=== PATIENT | female | born 1960 | race Caucasian/White ===

== ENCOUNTER 2019-11-04 18:10 | Emergency (ER) | payer OTHER ==
[2019-11-04 18:14] LABS: Glucose,Whole Blood 106 mg/dL (75-99)
[2019-11-04] MEDS ORDERED: SODIUM CHLORIDE 0.9% 500 ML 500 ML IV STA (18:15)
[2019-11-04 18:27] VITALS: TEMP 98.2
--- NOTE | 2019-11-04 18:33 | ED ---
General Adult HPI - General Stated complaint: AMS Time Seen by Provider: 11/04/19 18:10 Source: patient, EMS, RN notes reviewed, old records reviewed - History of Present Illness Initial comments: this is a 58-year-old female who was brought in for strokelike symptoms. According to EMS the patient was last seen normal about 25 minutes prior to their arrival. states when he found her she was altered had slurred speech and right-sided facial droop. When EMS arrived she was unable to answer most questions initially but slowly came around to the point where she was answering all questions by the time she arrived. EMS stated that her facial droop slowly resolved by the time they got here the facial droop it completely resolved. Patient currently states she's feeling better she just members feeling lightheaded at home and then doesn't remember much else. Patient states she has had a stroke in the past. Patient denies any drug or alcohol use. Patient denies any chest pain difficulty breathing shortness of breath. Patient denies any fever chills or cough per patient denies any headache patient denies any numbness weakness currently. Patient denies any abdominal pain patient denies any nausea vomiting. Patient denies any recent injury or trauma. - Related Data Allergies Allergy/AdvReac Type Severity Reaction Status Date / Time codeine Allergy Swelling Verified 11/04/19 18:28 Review of Systems ROS Statement: Those systems with pertinent positive or pertinent negative responses have been documented in the HPI. ROS Other: All systems not noted in ROS Statement are negative. General Exam - General Exam Comments Initial Comments: GENERAL: Patient is well-developed and well-nourished. Patient is nontoxic and well- hydrated and is in mild distress. ENT: Neck is soft and supple. No significant lymphadenopathy is noted. Oropharynx is clear. Moist mucous membranes. Neck has full range of motion without elici ting any pain. EYES: The sclera were anicteric and conjunctiva were pink and moist. Extraocular m ovements were intact and pupils were equal round and reactive to light. Eyelids were unremarkable. PULMONARY: Unlabored respirations. Good breath sounds bilaterally. No audible rales rhonchi or wheezing was noted. CARDIOVASCULAR: There is a regular rate and rhythm without any murmurs gallops or rubs. ABDOMEN: Soft and nontender with normal bowel sounds. SKIN: Skin is clear with no lesions or rashes and otherwise unremarkable. NEUROLOGIC: Patient is alert and oriented x3. Cranial nerves II through XII are grossly intact. Motor and sensory are also intact. Normal speech, volume and content. Symmetrical smile. NIH at this point is 0 MUSCULOSKELETAL: Patient is a gross deformity over the midclavicular region of the left clavicle area is extremely tender. LYMPHATICS: No significant lymphadenopathy is noted PSYCHIATRIC: Normal psychiatric evaluation. Course Vital Signs 11/04/19 11/04/19 11/04/19 18:20 19:53 20:00 Temperature 98.2 F Pulse Rate 70 70 65 Respiratory 18 18 20 Rate Blood Pressure 145/85 136/72 160/79 O2 Sat by Pulse 99 100 97 Oximetry Medical Decision Making - Medical Decision Making EKG shows normal sinus rhythm at 60 bpm ND interval is on a 26 QRS is 94 Q-T intervals 432 QTC is 459. Patient's EKG shows no ST segment elevation or depression. CT of the brain shows no acute abnormality. Chest x-ray shows a displaced midclavicular fracture on the left I told the patient she had a TIA and needed to stay in the hospital she actually refused and signed out AMA understanding the consequences or potential consequences. I spoke with Dr. Bob about the clavicle fracture and the patient will need [facility] - Lab Data Result diagrams: 11/04/19 18:13 11/04/19 18:13 Lab Results 11/04/19 11/04/19 11/04/19 Range/Units 18:13 18:13 18:13 WBC 5.4 (3.8-10.6) k/uL RBC 3.98 (3.80-5.40) m/uL Hgb 13.2 (11.4-16.0) gm/dL Hct 39.2 (34.0-46.0) % MCV 98.4 (80.0-100.0) fL MCH 33.2 (25.0-35.0) pg MCHC 33.7 (31.0-37.0) g/dL RDW 12.6 (11.5-15.5) % Plt Count 242 (150-450) k/uL Neutrophils % 55 % Lymphocytes % 26 % Monocytes % 6 % Eosinophils % 8 % Basophils % 2 % Neutrophils # 2.9 (1.3-7.7) k/uL Lymphocytes # 1.4 (1.0-4.8) k/uL Monocytes # 0.3 (0-1.0) k/uL Eosinophils # 0.4 (0-0.7) k/uL Basophils # 0.1 (0-0.2) k/uL PT 9.7 (9.0-12.0) sec INR 0.9 (<1.2) APTT 22.3 (22.0-30.0) sec Sodium (137-145) mmol/L Potassium (3.5-5.1) mmol/L Chloride (98-107) mmol/L Carbon Dioxide (22-30) mmol/L Anion Gap mmol/L BUN (7-17) mg/dL Creatinine (0.52-1.04) mg/dL Est GFR (CKD-EPI)AfAm (>60 ml/min/1.73 sqM) Est GFR (CKD-EPI)NonAf (>60 ml/min/1.73 sqM) Glucose (74-99) mg/dL POC Glucose (mg/dL) 106 H (75-99) mg/dL POC Glu Dispatcher Motor Vehicle ID Michelle Tierney Calcium (8.4-10.2) mg/dL Total Bilirubin (0.2-1.3) mg/dL AST (14-36) U/L ALT (4-34) U/L Alkaline Phosphatase (38-126) U/L Troponin I (0.000-0.034) ng/mL Total Protein (6.3-8.2) g/dL Albumin (3.5-5.0) g/dL Urine Color Urine Appearance (Clear) Urine pH (5.0-8.0) Ur Specific Kiester (1.001-1.035) Urine Protein (Negative) Urine Glucose (UA) (Negative) Urine Ketones (Negative) Urine Blood (Negative) Urine Nitrite (Negative) Urine Bilirubin (Negative) Urine Urobilinogen (<2.0) mg/dL Ur Leukocyte Esterase (Negative) Urine Opiates Screen (NotDetected) Ur Oxycodone Screen (NotDetected) Urine Methadone Screen (NotDetected) Ur Propoxyphene Screen (NotDetected) Ur Barbiturates Screen (NotDetected) U Tricyclic Antidepress (NotDetected) Ur Phencyclidine Scrn (NotDetected) Ur Amphetamines Screen (NotDetected) U Methamphetamines Scrn (NotDetected) U Benzodiazepines Scrn (NotDetected) Urine Cocaine Screen (NotDetected) U Marijuana (THC) Screen (NotDetected) 11/04/19 11/04/19 11/04/19 Range/Units 18:13 18:13 20:40 WBC (3.8-10.6) k/uL RBC (3.80-5.40) m/uL Hgb (11.4-16.0) gm/dL Hct (34.0-46.0) % MCV (80.0-100.0) fL MCH (25.0-35.0) pg MCHC (31.0-37.0) g/dL RDW (11.5-15.5) % Plt Count (150-450) k/uL Neutrophils % % Lymphocytes % % Monocytes % % Eosinophils % % Basophils % % Neutrophils # (1.3-7.7) k/uL Lymphocytes # (1.0-4.8) k/uL Monocytes # (0-1.0) k/uL Eosinophils # (0-0.7) k/uL Basophils # (0-0.2) k/uL PT (9.0-12.0) sec INR (<1.2) APTT (22.0-30.0) sec Sodium 137 (137-145) mmol/L Potassium 4.4 (3.5-5.1) mmol/L Chloride 108 H (98-107) mmol/L Carbon Dioxide 22 (22-30) mmol/L Anion Gap 7 mmol/L BUN 22 H (7-17) mg/dL Creatinine 0.54 (0.52-1.04) mg/dL Est GFR (CKD-EPI)AfAm >90 (>60 ml/min/1.73 sqM) Est GFR (CKD-EPI)NonAf >90 (>60 ml/min/1.73 sqM) Glucose 95 (74-99) mg/dL POC Glucose (mg/dL) (75-99) mg/dL POC Glu Dispatcher Motor Vehicle ID Calcium 9.0 (8.4-10.2) mg/dL Total Bilirubin 0.2 (0.2-1.3) mg/dL AST 29 (14-36) U/L ALT 19 (4-34) U/L Alkaline Phosphatase 88 (38-126) U/L Troponin I <0.012 (0.000-0.034) ng/mL Total Protein 6.9 (6.3-8.2) g/dL Albumin 4.0 (3.5-5.0) g/dL Urine Color Light Yellow Urine Appearance Clear (Clear) Urine pH 6.0 (5.0-8.0) Ur Specific Kiester 1.018 (1.001-1.035) Urine Protein Negative (Negative) Urine Glucose (UA) Negative (Negative) Urine Ketones Negative (Negative) Urine Blood Negative (Negative) Urine Nitrite Negative (Negative) Urine Bilirubin Negative (Negative) Urine Urobilinogen <2.0 (<2.0) mg/dL Ur Leukocyte Esterase Negative (Negative) Urine Opiates Screen Not Detected (NotDetected) Ur Oxycodone Screen Not Detected (NotDetected) Urine Methadone Screen Not Detected (NotDetected) Ur Propoxyphene Screen Not Detected (NotDetected) Ur Barbiturates Screen Detected H (NotDetected) U Tricyclic Antidepress Not Detected (NotDetected) Ur Phencyclidine Scrn Not Detected (NotDetected) Ur Amphetamines Screen Detected H (NotDetected) U Methamphetamines Scrn Not Detected (NotDetected) U Benzodiazepines Scrn Not Detected (NotDetected) Urine Cocaine Screen Not Detected (NotDetected) U Marijuana (THC) Screen Not Detected (NotDetected) Disposition Clinical Impression: Transient cerebral ischemia, Closed left clavicular fracture Disposition: Left Against Medical Advice Referrals: None,Stated [REFERRING] - 1-2 days Time of Disposition: 21:10
[2019-11-04 18:40] LABS: Basophils # (A) 0.1 k/uL (0-0.2); Basophils % (A) 2 %; Eosinophils # (A) 0.4 k/uL (0-0.7); Eosinophils % (A) 8 %; HCT 39.2 % (34.0-46.0); HGB 13.2 gm/dL (11.4-16.0); Lymphocytes # (A) 1.4 k/uL (1.0-4.8); Lymphocytes % (A) 26 %; MCH 33.2 pg (25.0-35.0); MCHC 33.7 g/dL (31.0-37.0); MCV 98.4 fL (80.0-100.0); Mean Platelet Volume 8.4; Monocytes # (A) 0.3 k/uL (0-1.0); Monocytes % (A) 6 %; Neutrophils # (A) 2.9 k/uL (1.3-7.7); Neutrophils % (A) 55 %; Platelet Count 242 k/uL (150-450); RBC 3.98 m/uL (3.80-5.40); RDW 12.6 % (11.5-15.5); WBC 5.4 k/uL (3.8-10.6)
--- NOTE | 2019-11-04 18:53 | CT ---
EXAMINATION TYPE: CT brain wo con for TPA DATE OF EXAM: 11/04/2019 COMPARISON: None HISTORY: FALL, CONFUSION CT DLP: 1099.4 mGycm Automated exposure control for dose reduction was used. Ventricles have normal size. There is no mass effect nor midline shift. There is no sign of intracran ial hemorrhage. Calvarium is intact. There is no evidence of cerebral edema. IMPRESSION: Negative head CT scan.
[2019-11-04 18:56] LABS: ALT 19 U/L (4-34); AST 29 U/L (14-36); African American GFR (CKD) >90 (>60 ml/min/1.73 sqM); Alkaline Phosphatase 88 U/L (38-126); Anion Gap 7 mmol/L; Blood Urea Nitrogen 22 mg/dL (7-17); Carbon Dioxide 22 mmol/L (22-30); Chloride 108 mmol/L (98-107); Glucose 95 mg/dL (74-99); INR 0.9 (<1.2); Non-African American GFR(CKD) >90 (>60 ml/min/1.73 sqM); Partial Thromboplastin Time 22.3 sec (22.0-30.0); Potassium 4.4 mmol/L (3.5-5.1); Prothrombin Time 9.7 sec (9.0-12.0); Sodium 137 mmol/L (137-145); Total Bilirubin 0.2 mg/dL (0.2-1.3); Total Protein 6.9 g/dL (6.3-8.2)
--- NOTE | 2019-11-04 18:57 | XR ---
EXAMINATION TYPE: XR chest 2V DATE OF EXAM: 11/04/2019 COMPARISON: NONE HISTORY: Altered mental status TECHNIQUE: FINDINGS: Heart size is normal. Lungs are clear of consolidation. There is no heart failure. There ar e chest leads. There is displaced left clavicle mid shaft fracture. Displacement is 2.5 cm. There is no pneumothorax. IMPRESSION: No cardiopulmonary disease. Displaced left clavicle fracture.
[2019-11-04 20:18] VITALS: BP 160/79; PULSE 65; RESP 20
[2019-11-04] MEDS ORDERED: HYDROmorphone 1 MG/ML 1 ML SYRINGE IVP STA (20:51)
[2019-11-04 21:01] LABS: Appearance,Urine Clear (Clear); Bilirubin,Urine Negative (Negative); Blood,Urine Negative (Negative); Color,Urine Light Yellow; Glucose,Urine (UA) Negative (Negative); Ketones,Urine Negative (Negative); Leukocyte Esterase,Urine Negative (Negative); Nitrite,Urine Negative (Negative); Protein,Urine Negative (Negative); Specific Gravity,Urine 1.018 (1.001-1.035); Urobilinogen,Urine <2.0 mg/dL (<2.0)
[2019-11-04 21:13] LABS: Amphetamine Screen,Urine Detected (NotDetected); Barbiturate Screen,Urine Detected (NotDetected); Benzodiazepines Screen,Urine Not Detected (NotDetected); Cocaine Screen,Urine Not Detected (NotDetected); Methadone Screen, Urine Not Detected (NotDetected); Opiate Screen,Urine Not Detected (NotDetected); Oxycodone Screen, Urine Not Detected (NotDetected); Phencyclidine Screen,Urine Not Detected (NotDetected); Tricyclic Antidepressant,Urine Not Detected (NotDetected); Urn Cannabinoid Scrn Not Detected (NotDetected)
[2019-11-04] MEDS ORDERED: ASPIRIN 325 MG TAB PO STA (21:15)
== END 2019-11-04 21:10 | disposition left against medical advice (07) ==
LOC: EC 18:10
DX: G45.9 Transient cerebral ischemic attack, unspecified (principal); S42.022A Displaced fracture of shaft of left clavicle, initial encounter for closed fracture; R29.700 NIHSS score 0; F17.200 Nicotine dependence, unspecified, uncomplicated; Z88.5 Allergy status to narcotic agent; Z53.20 Procedure and treatment not carried out because of patient's decision for unspecified reasons; X58.XXXA Exposure to other specified factors, initial encounter
CPT/HCPCS: 36415; 93005; 80053; 84484; 85025; 85610; 85730; 81003; 80306; 71046; 70450; 99285; 96374; 96361; J1170

== ENCOUNTER → 2020-02-21 | Outpatient (CLI) | payer OTHER ==
--- NOTE | 2020-02-21 13:12 | US ---
EXAMINATION TYPE: US carotid duplex BILAT DATE OF EXAM: 02/21/2020 COMPARISON: NONE CLINICAL HISTORY: G45.9 transient ischemic attack, E78.2 mixed hyper. TIA EXAM MEASUREMENTS: RIGHT: Peak Systolic Velocity (PSV) cm/sec ----- Right CCA: 90.3 ----- Right ICA: 103 ----- Right ECA: 120 ICA/CCA ratio: 1.14 RIGHT: End Diastole cm/sec ----- Right CCA: 32.5 ----- Right ICA: 36.4 ----- Right ECA: 26.0 LEFT: Peak Systolic Velocity (PSV) cm/sec ----- Left CCA: 105 ----- Left ICA: 121 ----- Left ECA: 114 ICA/CCA ratio: 1.15 LEFT: End Diastole cm/sec ----- Left CCA: 25.6 ----- Left ICA: 33.7 ----- Left ECA: 19.8 VERTEBRALS (direction of flow): Right Vertebral: Antegrade Left Vertebral: Antegrade Rhythm: Normal Mild to moderate plaque noted bilateral bifurcations. No evidence of significant stenosis IMPRESSION: No evidence for hemodynamically significant stenosis. Criteria for Assigning % of Stenosis / Diameter reduction (Estimation based on the indirect measurements of the internal carotid artery velocities (ICA PSV). 1. Normal (no stenosis)=ICA PSV < 125 cm/s: ratio < 2.0: ICA EDV<40 cm/s. 2. Less than 50% stenosis=ICA PSV < 125 cm/s: ratio < 2.0: ICA EDV<40 cm/s. 3. 50 to 69% stenosis=ICA PSV of 125 to 230 cm/s: ration 2.0 ? 4.0: ICA EDV 40-100 cm/s. 4. Greater than 70% stenosis to near occlusion= ICA PSV > 230 cm/s: ratio > 4.0: ICA EDV > 100 cm/s. 5. Near occlusion= ICA PSV velocities may be low or undetectable: variable ratio and ICA EDV. 6. Total occlusion=unable to detect flow.
== END | disposition home or self-care (01) ==
LOC: RADUSWWP 12:22
PROVIDERS: ATTEND Family Medicine
DX: G45.9 Transient cerebral ischemic attack, unspecified (principal); E78.2 Mixed hyperlipidemia
CPT/HCPCS: 93880

== ENCOUNTER 2020-10-07 20:47 | Emergency (ER) | payer OTHER ==
[2020-10-07 20:53] VITALS: RESP 18
[2020-10-07] MEDS ORDERED: SODIUM CHLORIDE 0.9% 500 ML 500 ML IV STA (21:14)
--- NOTE | 2020-10-07 21:26 | ED ---
SOB HPI - General Chief Complaint: Shortness of Breath Stated Complaint: SOB Time Seen by Provider: 10/07/20 20:56 Source: patient, EMS, RN notes reviewed Mode of arrival: EMS Limitations: no limitations - History of Present Illness Initial Comments: 59-year-old well-appearing white female patient presents to the emergency room with complaints of 2 days of shortness of breath but no loss of taste and smell, with three-day history of diarrhea watery in nature. Patient has a history of a stroke in November 2019, hypertension, rheumatoid arthritis. Patient denies fever, nausea or vomiting but does state she has a decreased oral intake. Patient states her was sick a couple days before she developed symptoms. Patient denies chest pain. MD Complaint: shortness of breath -: days(s) (2) Known History Of: other (cva, htn, RA) Context: other ( sick) Associated Symptoms: other (diarrhea 3 days) Treatments Prior to Arrival: none - Related Data Home Medications Medication Instructions Recorded Confirmed Aspirin EC [Ecotrin Low Dose] 81 mg PO DAILY 10/07/20 10/07/20 Atenolol [Tenormin] 100 mg PO DAILY 10/07/20 10/07/20 Atorvastatin Calcium [Lipitor] 40 mg PO HS 10/07/20 10/07/20 Butalb/APAP/Caff 50-325-40Mg 1 tab PO TID PRN 10/07/20 10/07/20 [Fioricet 50-325-40] Clopidogrel Bisulfate [Plavix] 75 mg PO DAILY 10/07/20 10/07/20 Ergocalciferol (Vitamin D2) 1,250 mcg PO MO 10/07/20 10/07/20 [Drisdol (50,000 Iu)] Gabapentin [Neurontin] 1,200 mg PO HS 10/07/20 10/07/20 Loratadine [Claritin] 10 mg PO DAILY 10/07/20 10/07/20 Allergies Allergy/AdvReac Type Severity Reaction Status Date / Time codeine Allergy Swelling Verified 10/07/20 22:10 Review of Systems ROS Statement: Those systems with pertinent positive or pertinent negative responses have been documented in the HPI. ROS Other: All systems not noted in ROS Statement are negative. Past Medical History Past Medical History: CVA/TIA, Hypertension, Rheumatoid Arthritis (RA), Thyroid Disorder History of Any Multi-Drug Resistant Organisms: None Reported Past Surgical History: No Surgical Hx Reported, Hysterectomy Smoking Status: Current some day smoker Past Alcohol Use History: Occasional Past Drug Use History: Marijuana General Exam Limitations: no limitations General appearance: alert, in no apparent distress Head exam: Present: normocephalic, normal inspection Eye exam: Present: normal appearance, PERRL, EOMI. Absent: scleral icterus, conjunctival injection, periorbital swelling Pupils: Present: normal accommodation ENT exam: Present: normal exam, mucous membranes moist Neck exam: Present: normal inspection, full ROM. Absent: tenderness, meningismus, lymphadenopathy, thyromegaly Respiratory exam: Present: normal lung sounds bilaterally. Absent: wheezes, rales, rhonchi, chest wall tenderness Cardiovascular Exam: Present: tachycardia, normal heart sounds GI/Abdominal exam: Present: soft Extremities exam: Present: normal inspection, full ROM, normal capillary refill. Absent: tenderness, pedal edema, calf tenderness Left Shoulder Exam: Present: deformity (old clavicle fx from November, needs sx to repair) Back exam: Present: normal inspection. Absent: tenderness, CVA tenderness (R), CVA tenderness (L) Neurological exam: Present: alert, oriented X3, CN II-XII intact Psychiatric exam: Present: normal affect, normal mood Skin exam: Present: warm (hypopigmented areas to upper back and right shoulder), dry, intact, normal color. Absent: rash Course Vital Signs 10/07/20 20:48 Temperature 98.8 F Pulse Rate 105 H Respiratory 18 Rate Blood Pressure 127/71 O2 Sat by Pulse 98 Oximetry Medical Decision Making - Medical Decision Making Patient Covid positive symptoms started October 03, oxygen saturation 98% on room air patient meets criteria to receive monoclonal antibodies with age of 59 and a history of cardiovascular disease and hypertension patient agreeable to receiving bamlanivimab and being discharged home. X-ray shows no infiltrates some upper lobe pulmonary emphysema. Case discussed with Dr. Barajas who was agreeable with this plan. - Lab Data Result diagrams: 10/07/20 21:47 10/07/20 21:47 Lab Results 10/07/20 10/07/20 10/07/20 Range/Units 21:47 21:47 21:47 WBC 2.7 L (3.8-10.6) k/uL RBC 4.07 (3.80-5.40) m/uL Hgb 13.7 (11.4-16.0) gm/dL Hct 38.8 (34.0-46.0) % MCV 95.3 (80.0-100.0) fL MCH 33.7 (25.0-35.0) pg MCHC 35.4 (31.0-37.0) g/dL RDW 12.5 (11.5-15.5) % Plt Count 187 (150-450) k/uL MPV 7.3 Neutrophils % 71 % Lymphocytes % 18 % Monocytes % 8 % Eosinophils % 1 % Basophils % 1 % Neutrophils # 1.9 (1.3-7.7) k/uL Lymphocytes # 0.5 L (1.0-4.8) k/uL Monocytes # 0.2 (0-1.0) k/uL Eosinophils # 0.0 (0-0.7) k/uL Basophils # 0.0 (0-0.2) k/uL PT 9.8 (9.0-12.0) sec INR 0.9 (<1.2) APTT 24.7 (22.0-30.0) sec Sodium 137 (137-145) mmol/L Potassium 4.2 (3.5-5.1) mmol/L Chloride 105 (98-107) mmol/L Carbon Dioxide 23 (22-30) mmol/L Anion Gap 9 mmol/L BUN 20 H (7-17) mg/dL Creatinine 0.51 L (0.52-1.04) mg/dL Est GFR (CKD-EPI)AfAm >90 (>60 ml/min/1.73 sqM) Est GFR (CKD-EPI)NonAf >90 (>60 ml/min/1.73 sqM) Glucose 101 H (74-99) mg/dL Plasma Lactic Acid Brayan (0.7-2.0) mmol/L Calcium 8.6 (8.4-10.2) mg/dL Total Bilirubin 0.5 (0.2-1.3) mg/dL AST 36 (14-36) U/L ALT 20 (4-34) U/L Alkaline Phosphatase 78 (38-126) U/L Troponin I (0.000-0.034) ng/mL Total Protein 6.7 (6.3-8.2) g/dL Albumin 3.8 (3.5-5.0) g/dL Coronavirus (PCR) (Not Detectd) 10/07/20 10/07/20 10/07/20 Range/Units 21:47 21:47 21:47 WBC (3.8-10.6) k/uL RBC (3.80-5.40) m/uL Hgb (11.4-16.0) gm/dL Hct (34.0-46.0) % MCV (80.0-100.0) fL MCH (25.0-35.0) pg MCHC (31.0-37.0) g/dL RDW (11.5-15.5) % Plt Count (150-450) k/uL MPV Neutrophils % % Lymphocytes % % Monocytes % % Eosinophils % % Basophils % % Neutrophils # (1.3-7.7) k/uL Lymphocytes # (1.0-4.8) k/uL Monocytes # (0-1.0) k/uL Eosinophils # (0-0.7) k/uL Basophils # (0-0.2) k/uL PT (9.0-12.0) sec INR (<1.2) APTT (22.0-30.0) sec Sodium (137-145) mmol/L Potassium (3.5-5.1) mmol/L Chloride (98-107) mmol/L Carbon Dioxide (22-30) mmol/L Anion Gap mmol/L BUN (7-17) mg/dL Creatinine (0.52-1.04) mg/dL Est GFR (CKD-EPI)AfAm (>60 ml/min/1.73 sqM) Est GFR (CKD-EPI)NonAf (>60 ml/min/1.73 sqM) Glucose (74-99) mg/dL Plasma Lactic Acid Brayan 1.1 (0.7-2.0) mmol/L Calcium (8.4-10.2) mg/dL Total Bilirubin (0.2-1.3) mg/dL AST (14-36) U/L ALT (4-34) U/L Alkaline Phosphatase (38-126) U/L Troponin I <0.012 (0.000-0.034) ng/mL Total Protein (6.3-8.2) g/dL Albumin (3.5-5.0) g/dL Coronavirus (PCR) Detected A (Not Detectd) - EKG Data EKG shows normal: sinus rhythm, intervals (Ventricular rate of 110, AL interval 0.12, QRS of 0.88, QTc of .457) Disposition Clinical Impression: COVID-19 Disposition: HOME SELF-CARE Condition: Fair Instructions (If sedation given, give patient instructions): Coronavirus Disease 2019 (COVID-19) Additional Instructions: Return if worsening symptoms including shortness of breath, inability to keep fluids down, or chest pain. Follow-up with the primary care doctor in 1 week Is patient prescribed a controlled substance at d/c from ED?: No Referrals: Yelena Momin MD [Primary Care Provider] - 1-2 days Time of Disposition: 22:24
[2020-10-07 21:55] LABS: Basophils % (A) 1 %; Eosinophils % (A) 1 %; HCT 38.8 % (34.0-46.0); HGB 13.7 gm/dL (11.4-16.0); Lymphocytes # (A) 0.5 k/uL (1.0-4.8); Lymphocytes % (A) 18 %; MCH 33.7 pg (25.0-35.0); MCHC 35.4 g/dL (31.0-37.0); MCV 95.3 fL (80.0-100.0); Mean Platelet Volume 7.3; Monocytes # (A) 0.2 k/uL (0-1.0); Monocytes % (A) 8 %; Neutrophils # (A) 1.9 k/uL (1.3-7.7); Neutrophils % (A) 71 %; Platelet Count 187 k/uL (150-450); RBC 4.07 m/uL (3.80-5.40); RDW 12.5 % (11.5-15.5); WBC 2.7 k/uL (3.8-10.6)
[2020-10-07 22:04] LABS: ALT 20 U/L (4-34); AST 36 U/L (14-36); African American GFR (CKD) >90 (>60 ml/min/1.73 sqM); Albumin 3.8 g/dL (3.5-5.0); Alkaline Phosphatase 78 U/L (38-126); Anion Gap 9 mmol/L; Blood Urea Nitrogen 20 mg/dL (7-17); Calcium 8.6 mg/dL (8.4-10.2); Carbon Dioxide 23 mmol/L (22-30); Chloride 105 mmol/L (98-107); Glucose 101 mg/dL (74-99); INR 0.9 (<1.2); Non-African American GFR(CKD) >90 (>60 ml/min/1.73 sqM); Partial Thromboplastin Time 24.7 sec (22.0-30.0); Potassium 4.2 mmol/L (3.5-5.1); Prothrombin Time 9.8 sec (9.0-12.0); Sodium 137 mmol/L (137-145); Total Bilirubin 0.5 mg/dL (0.2-1.3); Total Protein 6.7 g/dL (6.3-8.2)
--- NOTE | 2020-10-07 22:04 | XR ---
EXAMINATION TYPE: XR chest 2V DATE OF EXAM: 10/07/2020 COMPARISON: November 04, 2019 HISTORY: Altered mental status. Difficulty breathing. TECHNIQUE: FINDINGS: There is no heart failure nor confluent pneumonic infiltrate. Costophrenic angles are clear . Thoracic aorta is atheromatous. Bony thorax is intact. There is evidence of upper lobe pulmonary em physema. There is old fracture left clavicle. IMPRESSION: No active cardiopulmonary disease. No adverse change.
[2020-10-07] MEDS ORDERED: BAMLANIVIMAB (EUA) 700 MG, ETESEVIMAB (EUA) 1,400 MG in SODIUM CHLORIDE 0.9% 50 ML IVPB ONE (22:40)
[2020-10-08 01:20] VITALS: BP 105/61; PULSE 101; TEMP 98.5
== END 2020-10-08 01:15 | disposition home or self-care (01) ==
LOC: EC 20:47
DX: U07.1 COVID-19 (principal); I10 Essential (primary) hypertension; F17.200 Nicotine dependence, unspecified, uncomplicated; Z79.02 Long term (current) use of antithrombotics/antiplatelets; Z79.82 Long term (current) use of aspirin; Z79.899 Other long term (current) drug therapy; Z86.73 Personal history of transient ischemic attack (TIA), and cerebral infarction without residual deficits; Z88.5 Allergy status to narcotic agent
CPT/HCPCS: 36415; 93005; 80053; 83605; 84484; 85025; 85610; 85730; 87635; 71046; 99285; 96365; Q0245

== ENCOUNTER 2021-09-18 08:14 | Observation (INO) | payer OTHER ==
[2021-09-18] MEDS ORDERED: SODIUM CHLORIDE 0.9% 500 ML 500 ML IV ONE (08:48)
[2021-09-18 09:02] LABS: Basophils # (A) 0.1 k/uL (0-0.2); Basophils % (A) 1 %; Eosinophils # (A) 0.3 k/uL (0-0.7); Eosinophils % (A) 4 %; HCT 31.2 % (34.0-46.0); HGB 10.6 gm/dL (11.4-16.0); Lymphocytes % (A) 11 %; MCH 33.4 pg (25.0-35.0); MCHC 33.9 g/dL (31.0-37.0); MCV 98.7 fL (80.0-100.0); Mean Platelet Volume 7.6; Monocytes # (A) 0.4 k/uL (0-1.0); Monocytes % (A) 4 %; Neutrophils # (A) 7.3 k/uL (1.3-7.7); Neutrophils % (A) 79 %; Platelet Count 254 k/uL (150-450); RBC 3.16 m/uL (3.80-5.40); RDW 12.2 % (11.5-15.5); WBC 9.3 k/uL (3.8-10.6)
[2021-09-18 09:13] LABS: Partial Thromboplastin Time 23.9 sec (22.0-30.0); Prothrombin Time 10.6 sec (9.0-12.0)
[2021-09-18] MEDS ORDERED: ONDANSETRON 4 MG/2 ML VIAL IVP STA (09:13)
[2021-09-18] MEDS ORDERED: PANTOPRAZOLE 40 MG/10 ML VIAL IVP STA (09:13)
--- NOTE | 2021-09-18 09:16 | ED ---
GI Bleed HPI - General Chief complaint: GI Bleed Stated complaint: Vomiting blood Source: patient Mode of arrival: ambulatory Limitations: no limitations - History of Present Illness Initial comments: 60-year-old female presents to the emergency Department with reported dark stoo ls and hematemesis. She woke this morning around 4 AM with symptoms. She has had 4 episodes. No associated pain in her chest or abdomen. She denies history of peptic ulcer disease. Reports that she has had endoscopies before and is on medication for reflux and has been for several years. She denies any sick contacts. Patient is on Plavix for history of stroke. Denies history of similar episodes in the past. No fevers or chills. No back pain. Daughter noted some blood in her underpants. She is status post appendectomy and hysterectomy. No reported vaginal bleeding. Reports to infrequent alcohol use. No NSAID use. No other alleviating, air brake man or modifying factors - Related Data Home Medications Medication Instructions Recorded Confirmed Aspirin EC [Ecotrin Low Dose] 81 mg PO DIRECTED 10/07/20 09/18/21 Atenolol [Tenormin] 100 mg PO DIRECTED 10/07/20 09/18/21 Atorvastatin Calcium [Lipitor] 40 mg PO DIRECTED 10/07/20 09/18/21 Clopidogrel Bisulfate [Plavix] 75 mg PO DIRECTED 10/07/20 09/18/21 Ergocalciferol (Vitamin D2) 1,250 mcg PO DIRECTED 10/07/20 09/18/21 [Drisdol (50,000 Iu)] Gabapentin [Neurontin] 600 mg PO DIRECTED 10/07/20 09/18/21 Loratadine [Claritin] 10 mg PO DIRECTED 10/07/20 09/18/21 Omeprazole [PriLOSEC] 20 mg PO DIRECTED 09/18/21 09/18/21 Allergies Allergy/AdvReac Type Severity Reaction Status Date / Time codeine Allergy Swelling Verified 09/18/21 08:21 Review of Systems ROS Statement: Those systems with pertinent positive or pertinent negative responses have been documented in the HPI. ROS Other: All systems not noted in ROS Statement are negative. Past Medical History Past Medical History: Asthma, COPD, CVA/TIA, Hyperlipidemia, Hypertension, Rheumatoid Arthritis (RA), Thyroid Disorder History of Any Multi-Drug Resistant Organisms: None Reported Past Surgical History: Hysterectomy Past Psychological History: No Psychological Hx Reported Smoking Status: Current some day smoker Past Alcohol Use History: Occasional Past Drug Use History: Marijuana General Exam Limitations: no limitations Course Vital Signs 09/18/21 09/18/21 09/18/21 08:17 08:26 08:30 Temperature 98.1 F Pulse Rate 64 Respiratory 18 18 Rate Blood Pressure 129/56 138/85 O2 Sat by Pulse 94 L Oximetry 09/18/21 08:51 Temperature Pulse Rate 101 H Respiratory 20 Rate Blood Pressure 123/62 O2 Sat by Pulse 98 Oximetry - Reevaluation(s) Reevaluation #1: 09/18/21 11:23 Dr. Duenas made aware of the patient's presence in the emergency department Medical Decision Making - Medical Decision Making Upon arrival patient was placed in room 10.History and physical exam was performed. I did obtain a small amount of brown stool on rectal exam. No melanic stools appreciated or bright red blood. No masses. Normal rectal tone. IV access is established laboratory studies were conducted. Hemoccult and found to be 10.6. Patient's previous hemoglobin 13.7 one year ago. Occult is negative. Patient sent for CT of the abdomen and pelvis which demonstrates severe calcified plaque of the abdominal aorta was significant stenosis right before the iliac bifurcation. Significant stenosis at the origin of the right common iliac. Significant stenosis probable complete occlusion of the left common iliac artery with reconstitution. Mild wall thickening in the left and proximal sigmoid colon. Patient does not have any appreciable abdominal pain at this time. Patient does admit to chronic claudication symptoms without previous workup. I did recommend admission in order to trend her hemoglobin doesn't have GI consult. Patient agreed to this. Spoke with Dr. Duenas on the phone to notify her of the patient's presents with concern for upper GI bleed. Patient will be admitted to [facility]. - Lab Data Result diagrams: 09/18/21 08:44 09/18/21 08:44 Lab Results 09/18/21 09/18/21 09/18/21 Range/Units 08:44 08:44 08:44 WBC 9.3 (3.8-10.6) k/uL RBC 3.16 L (3.80-5.40) m/uL Hgb 10.6 L (11.4-16.0) gm/dL Hct 31.2 L (34.0-46.0) % MCV 98.7 (80.0-100.0) fL MCH 33.4 (25.0-35.0) pg MCHC 33.9 (31.0-37.0) g/dL RDW 12.2 (11.5-15.5) % Plt Count 254 (150-450) k/uL MPV 7.6 Neutrophils % 79 % Lymphocytes % 11 % Monocytes % 4 % Eosinophils % 4 % Basophils % 1 % Neutrophils # 7.3 (1.3-7.7) k/uL Lymphocytes # 1.0 (1.0-4.8) k/uL Monocytes # 0.4 (0-1.0) k/uL Eosinophils # 0.3 (0-0.7) k/uL Basophils # 0.1 (0-0.2) k/uL PT 10.6 (9.0-12.0) sec INR 1.0 (<1.2) APTT 23.9 (22.0-30.0) sec Sodium (137-145) mmol/L Potassium (3.5-5.1) mmol/L Chloride (98-107) mmol/L Carbon Dioxide (22-30) mmol/L Anion Gap mmol/L BUN (7-17) mg/dL Creatinine (0.52-1.04) mg/dL Est GFR (CKD-EPI)AfAm (>60 ml/min/1.73 sqM) Est GFR (CKD-EPI)NonAf (>60 ml/min/1.73 sqM) Glucose (74-99) mg/dL Plasma Lactic Acid Brayan (0.7-2.0) mmol/L Calcium (8.4-10.2) mg/dL Magnesium (1.6-2.3) mg/dL Total Bilirubin (0.2-1.3) mg/dL AST (14-36) U/L ALT (4-34) U/L Alkaline Phosphatase (38-126) U/L Troponin I (0.000-0.034) ng/mL Total Protein (6.3-8.2) g/dL Albumin (3.5-5.0) g/dL Lipase (23-300) U/L Stool Occult Blood Negative (Negative) Blood Type Blood Type Recheck Bld Type Recheck Status Antibody Screen Spec Expiration Date 09/18/21 09/18/21 09/18/21 Range/Units 08:44 08:44 08:44 WBC (3.8-10.6) k/uL RBC (3.80-5.40) m/uL Hgb (11.4-16.0) gm/dL Hct (34.0-46.0) % MCV (80.0-100.0) fL MCH (25.0-35.0) pg MCHC (31.0-37.0) g/dL RDW (11.5-15.5) % Plt Count (150-450) k/uL MPV Neutrophils % % Lymphocytes % % Monocytes % % Eosinophils % % Basophils % % Neutrophils # (1.3-7.7) k/uL Lymphocytes # (1.0-4.8) k/uL Monocytes # (0-1.0) k/uL Eosinophils # (0-0.7) k/uL Basophils # (0-0.2) k/uL PT (9.0-12.0) sec INR (<1.2) APTT (22.0-30.0) sec Sodium 138 (137-145) mmol/L Potassium 3.6 (3.5-5.1) mmol/L Chloride 112 H (98-107) mmol/L Carbon Dioxide 20 L (22-30) mmol/L Anion Gap 6 mmol/L BUN 32 H (7-17) mg/dL Creatinine 0.62 (0.52-1.04) mg/dL Est GFR (CKD-EPI)AfAm >90 (>60 ml/min/1.73 sqM) Est GFR (CKD-EPI)NonAf >90 (>60 ml/min/1.73 sqM) Glucose 95 (74-99) mg/dL Plasma Lactic Acid Brayan 1.4 (0.7-2.0) mmol/L Calcium 8.4 (8.4-10.2) mg/dL Magnesium 1.7 (1.6-2.3) mg/dL Total Bilirubin 0.5 (0.2-1.3) mg/dL AST 22 (14-36) U/L ALT 14 (4-34) U/L Alkaline Phosphatase 62 (38-126) U/L Troponin I <0.012 (0.000-0.034) ng/mL Total Protein 6.3 (6.3-8.2) g/dL Albumin 3.5 (3.5-5.0) g/dL Lipase 77 (23-300) U/L Stool Occult Blood (Negative) Blood Type Blood Type Recheck Bld Type Recheck Status Antibody Screen Spec Expiration Date 09/18/21 Range/Units 08:44 WBC (3.8-10.6) k/uL RBC (3.80-5.40) m/uL Hgb (11.4-16.0) gm/dL Hct (34.0-46.0) % MCV (80.0-100.0) fL MCH (25.0-35.0) pg MCHC (31.0-37.0) g/dL RDW (11.5-15.5) % Plt Count (150-450) k/uL MPV Neutrophils % % Lymphocytes % % Monocytes % % Eosinophils % % Basophils % % Neutrophils # (1.3-7.7) k/uL Lymphocytes # (1.0-4.8) k/uL Monocytes # (0-1.0) k/uL Eosinophils # (0-0.7) k/uL Basophils # (0-0.2) k/uL PT (9.0-12.0) sec INR (<1.2) APTT (22.0-30.0) sec Sodium (137-145) mmol/L Potassium (3.5-5.1) mmol/L Chloride (98-107) mmol/L Carbon Dioxide (22-30) mmol/L Anion Gap mmol/L BUN (7-17) mg/dL Creatinine (0.52-1.04) mg/dL Est GFR (CKD-EPI)AfAm (>60 ml/min/1.73 sqM) Est GFR (CKD-EPI)NonAf (>60 ml/min/1.73 sqM) Glucose (74-99) mg/dL Plasma Lactic Acid Brayan (0.7-2.0) mmol/L Calcium (8.4-10.2) mg/dL Magnesium (1.6-2.3) mg/dL Total Bilirubin (0.2-1.3) mg/dL AST (14-36) U/L ALT (4-34) U/L Alkaline Phosphatase (38-126) U/L Troponin I (0.000-0.034) ng/mL Total Protein (6.3-8.2) g/dL Albumin (3.5-5.0) g/dL Lipase (23-300) U/L Stool Occult Blood (Negative) Blood Type O Positive Blood Type Recheck O Pos Bld Type Recheck Status No Antibody Screen NEGATIVE Spec Expiration Date 09/21/2021 - 2343 - EKG Data EKG Comments: EKG demonstrates a sinus tachycardia with a rate of 100. ND interval 109. QRS 93. QTC of 406. No acute ST segment elevations or depressions Disposition Clinical Impression: Hematochezia Disposition: ADMITTED IP TO THIS HOSP Condition: Stable Is patient prescribed a controlled substance at d/c from ED?: No Referrals: Yelena Momin MD [Primary Care Provider] - 1-2 days Decision to Admit Reason: Admit from EC Decision Date: 09/18/21 Decision Time: 11:17
[2021-09-18 09:32] LABS: ALT 14 U/L (4-34); AST 22 U/L (14-36); African American GFR (CKD) >90 (>60 ml/min/1.73 sqM); Albumin 3.5 g/dL (3.5-5.0); Alkaline Phosphatase 62 U/L (38-126); Anion Gap 6 mmol/L; Blood Urea Nitrogen 32 mg/dL (7-17); Calcium 8.4 mg/dL (8.4-10.2); Carbon Dioxide 20 mmol/L (22-30); Chloride 112 mmol/L (98-107); Glucose 95 mg/dL (74-99); Lipase 77 U/L (23-300); Magnesium 1.7 mg/dL (1.6-2.3); Non-African American GFR(CKD) >90 (>60 ml/min/1.73 sqM); Potassium 3.6 mmol/L (3.5-5.1); Sodium 138 mmol/L (137-145); Total Bilirubin 0.5 mg/dL (0.2-1.3); Total Protein 6.3 g/dL (6.3-8.2)
--- NOTE | 2021-09-18 10:18 | CT ---
EXAMINATION TYPE: CT abdomen pelvis w con DATE OF EXAM: 09/18/2021 HISTORY: vomiting blood CT DLP: 652mGycm Automated Exposure Control for Dose Reduction was Utilized. CONTRAST: CT scan of the abdomen and pelvis is performed without oral but with IV Contrast, patient injected wi th 100 mL of Isovue 300. COMPARISON: None. FINDINGS: LUNG BASES: Coronary artery calcification in the RCA distribution is identified.. LIVER/GB: No significant abnormality is appreciated. PANCREAS: No significant abnormality is seen. SPLEEN: No significant abnormality is seen. ADRENALS: No significant abnormality is seen. KIDNEYS: Subcentimeter low dense lesion in the right kidney delayed axial image 30 is presumed benign . BOWEL: No suspicious small or large bowel dilatation mild wall thickening from the splenic flexure in to the left colon into the proximal sigmoid colon. A few distal colonic diverticula in the proximal s igmoid colon. No surrounding fat stranding to suggest acute diverticulitis. No free or mesenteric air . UTERUS/ADNEXA: Uterus is surgically absent or markedly atrophic. Occasional scattered tiny bilateral pelvic phleboliths. LYMPH NODES: No greater than 1cm abdominal or pelvic lymph nodes are appreciated. OSSEOUS STRUCTURES: Transitional type vertebra lumbosacral junction. [id number] axial joint spa ce loss in both hips. OTHER: Severe calcified plaque of the infrarenal abdominal aorta with significant stenosis likely pre sent right at level of bifurcation. Significant plaque in the left common iliac artery with poor visu alized contrast opacification. Some improved visualization past the bifurcation. Moderate to severe p laque right common iliac artery without significant stenosis after the origin. No significant stenosi s in the celiac artery or SMA. IMPRESSION: Severe calcified plaque of the abdominal aorta with significant stenosis right before the iliac bifurcation. Significant stenosis at origin of the right common iliac artery. Significant sten osis probable complete occlusion of the left common iliac artery with reconstitution after the bifurc ation. Correlate clinically for lower extremity radiculopathy type symptoms. Mild wall thickening in the left and proximal sigmoid colon could reflect product of poor distention, a mild uncomplicated co litis cannot be excluded. Differential would include inflammatory, ischemic, and infectious etiologie s.
[2021-09-18] MEDS ORDERED: HYDROmorphone 1 MG/ML 1 ML SYRINGE IVP STA (11:17)
[2021-09-18] MEDS ORDERED: NALOXONE 0.4 MG/ML 1 ML VIAL IV PRN (11:26)
[2021-09-18] MEDS ORDERED: ONDANSETRON 4 MG/2 ML VIAL IVP PRN (11:26)
[2021-09-18] MEDS: SODIUM CHLORIDE 0.9% 1,000 ML IV SCH (11:31)
[2021-09-18 13:01] LABS: HCT 27.2 % (34.0-46.0); HGB 9.2 gm/dL (11.4-16.0); MCH 33.1 pg (25.0-35.0); MCHC 33.7 g/dL (31.0-37.0); MCV 98.2 fL (80.0-100.0); Platelet Count 212 k/uL (150-450); RBC 2.77 m/uL (3.80-5.40); RDW 12.8 % (11.5-15.5); WBC 6.3 k/uL (3.8-10.6)
--- NOTE | 2021-09-18 14:12 | P.CONS ---
History of Present Illness - Reason for Consult Consult date: 09/18/21 Hematemesis Requesting physician: Cristina Lowery - Chief Complaint Vomiting blood - History of Present Illness This is a pleasant 60-year-old female who presented to the emergency department after having 4 episodes of bloody emesis. Patient states early this morning she woke up feeling nauseated and then a short while later started vomiting and states it was all blood. States it was dark and plan bright red with clots. She denies any previous history of upper GI bleed. Denies any previous history of peptic ulcer disease or previous EGD. She denied any blood in her stool. States that her daughter states there was a small amount of blood in her underwear either vaginal or urinary. She does have a history of a CVA and plavix denies any other anticoagulation. she does take ibuprofen regularly for t pain and states that she takes approximately 4 tablets daily. admitting blood work showed wbc 9.3 hemoglobin 10.6 hematocrit 31 platelet count 254 inr 1.0. Stool occult blood was negative. She did have an elevated BUN. She denied any abdominal pain at that time, continues to deny any abdominal pain. She's been afebrile. Review of Systems REVIEW OF SYSTEMS: CARDIOPULMONARY: No chest pain or shortness of breath. Gastrointestinal: Denies abdominal pain. Nausea with hematemesis. No rectal bleeding, or melena. GENITOURINARY: No dysuria or hematuria. MUSCULOSKELETAL: Reports normal range of motion., Joint pain. SKIN: No rashes. No jaundice. ENDOCRINE: No chills, fevers. No excessive weight gain or loss. No polydipsia or polyuria. PSYCHIATRIC: Unremarkable. NEUROLOGY: No change in mental status. Denies dizziness, headache. ENT: Vision unremarkable. CONSTITUTIONAL: No recent weight loss. No fever, chills, night sweats. Past Medical History Past Medical History: Asthma, COPD, CVA/TIA, Hyperlipidemia, Hypertension, Rheumatoid Arthritis (RA), Thyroid Disorder History of Any Multi-Drug Resistant Organisms: None Reported Past Surgical History: Hysterectomy Past Psychological History: No Psychological Hx Reported Smoking Status: Current some day smoker Past Alcohol Use History: Occasional Past Drug Use History: Marijuana Medications and Allergies Home Medications Medication Instructions Recorded Confirmed Type Aspirin EC [Ecotrin Low Dose] 81 mg PO DIRECTED 10/07/20 09/18/21 History Atenolol [Tenormin] 100 mg PO DIRECTED 10/07/20 09/18/21 History Atorvastatin Calcium [Lipitor] 40 mg PO DIRECTED 10/07/20 09/18/21 History Clopidogrel Bisulfate [Plavix] 75 mg PO DIRECTED 10/07/20 09/18/21 History Ergocalciferol (Vitamin D2) 1,250 mcg PO DIRECTED 10/07/20 09/18/21 History [Drisdol (50,000 Iu)] Gabapentin [Neurontin] 600 mg PO DIRECTED 10/07/20 09/18/21 History Loratadine [Claritin] 10 mg PO DIRECTED 10/07/20 09/18/21 History Omeprazole [PriLOSEC] 20 mg PO DIRECTED 09/18/21 09/18/21 History Allergies Allergy/AdvReac Type Severity Reaction Status Date / Time codeine Allergy Swelling Verified 09/18/21 08:21 Physical Exam Vitals: Vital Signs Temp Pulse Resp BP Pulse Ox 09/18/21 13:00 90 18 107/89 96 09/18/21 08:51 101 H 20 123/62 98 09/18/21 08:30 18 09/18/21 08:26 138/85 09/18/21 08:17 98.1 F 64 18 129/56 94 L Intake and Output 09/17/21 09/18/21 09/18/21 22:59 06:59 14:59 Other: Weight 56.699 kg General appearance: The patient is alert, oriented, appears in no acute distress. HET: Head is normocephalic and atraumatic. Conjunctiva pink. Sclera anicteric. Neck: Supple without lymphadenopathy. Trachea midline. Heart: S1 S2. Regular rate and rhythm. Lungs: Clear to auscultation. Abdomen: Soft, nontender, nondistended with bowel sounds. No guarding or rigidity. Skin: No rashes. No jaundice. Extremities: Normal skin color and turgor. No pedal edema. Neurological: No focal deficits. Alert and oriented x3. Results CBC & Chem 7: 09/18/21 12:47 09/18/21 08:44 Labs: Abnormal Lab Results - Last 24 Hours (Table) 09/18/21 09/18/21 09/18/21 Range/Units 08:44 08:44 12:47 RBC 3.16 L 2.77 L (3.80-5.40) m/uL Hgb 10.6 L 9.2 L (11.4-16.0) gm/dL Hct 31.2 L 27.2 L (34.0-46.0) % Chloride 112 H (98-107) mmol/L Carbon Dioxide 20 L (22-30) mmol/L BUN 32 H (7-17) mg/dL Comments: CT abdomen and pelvis showed severe calcified plaque of the abdominal aorta with significant stenosis reported for iliac bifurcation. Significant stenosis at origin of right common iliac artery. Significant stenosis probable complete occlusion of left common iliac artery with reconstitution after the bifurcation. Correlate clinically for lower extremity radiculopathy type symptoms. Mild wall thickening in the left and proximal sigmoid colon could reflect product of poor distention, mild uncomplicated colitis cannot be excluded. Differential would include inflammatory, ischemic and infectious etiologies. Assessment and Plan (1) Hematemesis Narrative/Plan: [id number] female who presented to the emergency department today with comp laints of 4 episodes of bloody emesis. States it was dark and mixed with bright red and clots. She has no previous history of upper GI bleed. No previous history of peptic ulcer disease or EGD. He has had a history of colonoscopy unsure when. She currently is on Plavix for history of CVA, no other anticoagulation. She does take ibuprofen 4 tablets daily for teeth pain. Possible etiologies include AVM, peptic ulcer disease, varices, gastritis, esophagitis or other possible etiologies. Will proceed with upper endoscopy tomorrow. Current Visit: Yes Status: Acute Code(s): K92.0 - HEMATEMESIS SNOMED Code(s): 5457328 Plan: 1. Continue symptomatic and supportive care 2. Protonix 40 mg twice a day 3. Antiemetics as needed 4. Hold Plavix 5. Clear liquid diet, nothing by mouth after midnight 6. We'll proceed with EGD tomorrow, procedure discussed with patient including risks and benefits. Patient willing to proceed. Thank you for this consultation, we will continue to follow. Dr. Tae Adam I agree with the dictator's note, documented as a scribe by Dary Sarah.
--- NOTE | 2021-09-18 17:12 | P.HPIM ---
History of Present Illness H&P Date: 09/18/21 Chief Complaint: vomiting blood Patient is a 6-year-old female with a history of COPD, TIA, hypertension, and dyslipidemia who presented to the emergency department after 4 episodes of bloody emesis. In the ER she underwent an extensive evaluation. Her initial fecal occult blood was negative however there was not much stool obtained. Initial hemoglobin in the ER was 10.2. She was found to have chloride of 112 and CO2 of 20. GI was consulted and patient was placed in observation. Her second hemoglobin decreased to 9.6. She was seen by GI who plan for EGD in AM. Patient seen and examined at bedside. Was sitting at the table and felt sic to her stomach and went to the bathroom and started vomiting blood and this happened a total of 4 times. No melena or blood in the stool. No unusual intake, no sicks contacts. No hx of this in the past. Had a colonoscopy in the past that was normal per patient. + chronic cough at night. On acid refluc medications for years. Takes ASA 1 tablet daily. She was using Motrin regularly until 3 years ago. No ETOH use. No weight loss. Pertinent positives and negatives as discussed in HPI, a complete review of systems was performed and all other systems are negative. General: non toxic, no distress, appears at stated age Derm: warm, dry Head: atraumatic, normocephalic, symmetric Eyes: EOMI, no lid lag, anicteric sclera, pupils equal round reactive to light ENT: Nose and ears atraumatic, no thrush, no pharyngeal erythema Neck: No thyromegaly, no cervical lymphadenopathy, trachea midline, supple Mouth: no lip lesion, mucus membranes moist Cardiovascular: S1S2 reg, no murmur, positive posterior tibial pulse bilateral, no edema, capillary refill less than 2 seconds Lungs: clear to ascultation bilateral, no ronchi, no rales, no wheeze, no accessory muscle use Abdominal: soft, nontender to palpation, no guarding, no appreciable organomegaly, normal bowel sounds Ext: no gross muscle atrophy, muscle strength muscle strength 5 out of 5 in all 4 extremities, no contractures Neuro: Left sided facial droop, left arm weakness, light touch intact all 4 extremities, finger to nose within normal limits, Psych: Alert, oriented, appropriate affect, appears to be unable to sit still with some uncontrollable movements. Assessment/plan: Hematemesis GERD -Hold aspirin and Plavix -IV PPI -GI recommendations: Plan for EGD in a.m. -Serial CBC History of prior stroke with residual facial droop, and left arm weakness -Aspirin and Plavix on hold -Continue with statin Hypertension -Continue with atenolol -Follow blood pressures Tobacco abuse -Cessation -Nicotine replacement COPD without exacerbation -When necessary bronchodilators Chronic pain -Resume home medications -Outpatient follow-up The patient is placed in observation with an anticipated less than 2 midnight stay for evaluation of GI bleed. 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 Past Medical History Past Medical History: Asthma, COPD, CVA/TIA, GERD/Reflux, Hyperlipidemia, Hypertension, Osteoarthritis (OA), Pneumonia, Rheumatoid Arthritis (RA), Thyroid Disorder Additional Past Medical History / Comment(s): Pt states she currently has a tooth infection, fell 1.5 years ago and had a fracture displaced L clavicle that needs surgery but needs cardiac clearance per pt, CVA with some speech difficulty/L arm and leg weakness, enlarged heart, valvular disease, murmur, colitis, diverticular disease, hemorrhoids, thyroid benign nodules, R breast benign cyst, L breast benign mass, chronic back/bilateral hip pain, sciatica R sided, bilateral carpal tunnel syndrome, migrainies, pt has had a pain manageme nt physician in the past. History of Any Multi-Drug Resistant Organisms: None Reported Past Surgical History: Appendectomy, Hysterectomy, Orthopedic Surgery, Tonsillectomy Additional Past Surgical History / Comment(s): EGD, colonoscopy, R carpal tunnel release Past Anesthesia/Blood Transfusion Reactions: No Reported Reaction Smoking Status: Current every day smoker, Light tobacco smoker Past Alcohol Use History: None Reported Past Drug Use History: None Reported - Past Family History Father Family Medical History: Cancer Additional Family Medical History / Comment(s): Father of leukemia. Brother(s) Family Medical History: Cancer Additional Family Medical History / Comment(s): Brother of leukemia Mother Family Medical History: Cancer Additional Family Medical History / Comment(s): Mother of lung cancer. Medications and Allergies Home Medications Medication Instructions Recorded Confirmed Type Aspirin EC [Ecotrin Low Dose] 81 mg PO DIRECTED 10/07/20 09/18/21 History Atenolol [Tenormin] 100 mg PO DIRECTED 10/07/20 09/18/21 History Atorvastatin Calcium [Lipitor] 40 mg PO DIRECTED 10/07/20 09/18/21 History Clopidogrel Bisulfate [Plavix] 75 mg PO DIRECTED 10/07/20 09/18/21 History Ergocalciferol (Vitamin D2) 1,250 mcg PO DIRECTED 10/07/20 09/18/21 History [Drisdol (50,000 Iu)] Gabapentin [Neurontin] 600 mg PO DIRECTED 10/07/20 09/18/21 History Loratadine [Claritin] 10 mg PO DIRECTED 10/07/20 09/18/21 History Omeprazole [PriLOSEC] 20 mg PO DIRECTED 09/18/21 09/18/21 History Allergies Allergy/AdvReac Type Severity Reaction Status Date / Time codeine Allergy Swelling Verified 09/18/21 08:21 Physical Exam Osteopathic Statement: *. No significant issues noted on an osteopathic structural exam other than those noted in the History and Physical/Consult. Vitals: Vital Signs Temp Pulse Pulse Resp BP BP Pulse Ox 09/18/21 14:31 98.3 F 92 18 123/71 96 09/18/21 13:00 90 18 107/89 96 09/18/21 08:51 101 H 20 123/62 98 09/18/21 08:30 18 09/18/21 08:26 138/85 09/18/21 08:17 98.1 F 64 18 129/56 94 L Intake and Output 09/18/21 09/18/21 09/18/21 06:59 14:59 22:59 Other: Weight 56.699 kg Results CBC & Chem 7: 09/18/21 12:47 09/18/21 08:44 Labs: Abnormal Lab Results - Last 24 Hours (Table) 09/18/21 09/18/21 09/18/21 Range/Units 08:44 08:44 12:47 RBC 3.16 L 2.77 L (3.80-5.40) m/uL Hgb 10.6 L 9.2 L (11.4-16.0) gm/dL Hct 31.2 L 27.2 L (34.0-46.0) % Chloride 112 H (98-107) mmol/L Carbon Dioxide 20 L (22-30) mmol/L BUN 32 H (7-17) mg/dL Thrombosis Risk Factor Assmnt - Choose All That Apply Any of the Below Risk Factors Present?: Yes Each Factor Represents 1 point: Abnormal pulmonary function (COPD), Age 41-60 years Other Risk Factors: No Other congenital or acquired thrombophilia - If yes, enter type in comment: No Thrombosis Risk Factor Assessment Total Risk Factor Score: 2 Thrombosis Risk Factor Assessment Level: Low Risk
[2021-09-18] MEDS: NICOTINE 7MG/24HR PATCH TRANSDERM SCH (18:06)
[2021-09-18 18:35] LABS: Appearance,Urine Clear (Clear); Bilirubin,Urine Negative (Negative); Blood,Urine Negative (Negative); Color,Urine Light Yellow; Glucose,Urine (UA) Negative (Negative); Ketones,Urine Negative (Negative); Leukocyte Esterase,Urine Negative (Negative); Nitrite,Urine Negative (Negative); Protein,Urine Negative (Negative); Urobilinogen,Urine <2.0 mg/dL (<2.0)
[2021-09-18 18:36] LABS: Specific Gravity,Urine >1.050 (1.001-1.035)
[2021-09-18] MEDS: PANTOPRAZOLE 40 MG/10 ML VIAL IV SCH (20:14)
[2021-09-18 22:25] LABS: HCT 23.5 % (34.0-46.0); HGB 8.1 gm/dL (11.4-16.0); MCH 34.2 pg (25.0-35.0); MCHC 34.4 g/dL (31.0-37.0); MCV 99.5 fL (80.0-100.0); Mean Platelet Volume 7.9; Platelet Count 171 k/uL (150-450); RBC 2.36 m/uL (3.80-5.40); RDW 12.4 % (11.5-15.5); WBC 4.6 k/uL (3.8-10.6)
[2021-09-19] MEDS: ACETAMINOPHEN TAB 325 MG TAB PO PRN ×2 (00:27→11:51)
[2021-09-19 04:08] VITALS: RESP 18
[2021-09-19] MEDS ORDERED: MORPHINE SULFATE 2 MG/ML SYRINGE IVP STA (04:13)
[2021-09-19] MEDS: SODIUM CHLORIDE 0.9% 1,000 ML IV SCH ×2 (04:22→07:40)
[2021-09-19] MEDS ORDERED: PROPOFOL 10 MG/ML 20 ML VIAL IV ONE (06:39)
[2021-09-19] MEDS ORDERED: IV FLUID CONTINUATION 1,000 ML IV ONE ×2 (06:41)
--- NOTE | 2021-09-19 07:01 | P.PCN ---
Date of Procedure: 09/19/21 Procedure(s) Performed: BRIEF HISTORY: Patient is a 60-year-old, pleasant, white female scheduled for an upper endoscopy as a part of evaluation of acute upper GI bleed. She presents to the emergency room with multiple episodes of hematemesis. As needed Motrin on a regular basis last 5 months. Hemoglobin was 7 g/dL.. PROCEDURE PERFORMED: Esophagogastroduodenoscopy with biopsy. PREOPERATIVE DIAGNOSIS: Acute upper GI bleed. IV sedation per anesthesia. PROCEDURE: After informed consent was obtained, the patient was brought into the endoscopy unit. IV sedation was administered by Anesthesia under continuous monitoring. Initially the Olympus GIF-140 video endoscope was inserted into the mouth. Esophagus intubated without any difficulty. It was gradually advanced into the stomach and duodenum and carefully examined. The bulb of the duodenum had 2 superficial ulcerations measuring 5 and 6 mm in size with no active bleeding. The second part of the duodenum appeared normal. The scope at this time was withdrawn to the stomach, adequately insufflated with air, and upon careful examination, mucosa of the antrum, several scattered erosions which were biopsied. The body, cardia and the fundus appeared normal. The scope was then withdrawn into the esophagus. The GE junction was located at 39 cm from the incisors. The esophagus appeared normal. There were no erosions or ulcerations seen . In the proximal esophagus at 25 cm from the incisors there was a 3 mm polyp that was removed by biopsy and the patient tolerated the procedure well. IMPRESSION: 1. 2 superficial duodenal bulbar ulcers measuring 5 and 6 mm in size with no active bleeding . 2 Antral erosive gastritis 3. 3 mm small esophageal polyp status post biopsy]. RECOMMENDATIONS: The findings of this examination were discussed with the patient . Continue with Protonix 40 mg daily. Avoid NSAIDs. Advance to regul ar diet. Patient was sent home today..
[2021-09-19] MEDS: PANTOPRAZOLE 40 MG/10 ML VIAL IV SCH (07:41)
[2021-09-19 08:49] VITALS: PULSE 100; TEMP 98.4
[2021-09-19] MEDS ORDERED: PANTOPRAZOLE 40 MG/10 ML VIAL IV SCH (09:00)
[2021-09-19 09:02] LABS: Basophils # (A) 0.06 X 10*3/uL (0.00-0.10); Basophils % (A) 1.1 %; Eosinophils % (A) 3.6 %; HCT 24.5 % (37.2-46.3); HGB 7.9 g/dL (12.0-15.0); Immature Grans, Automated 0.4 %; Lymphocytes # (A) 1.14 X 10*3/uL (0.90-5.00); Lymphocytes % (A) 20.6 %; MCH 32.2 pg (27.0-32.0); MCHC 32.2 g/dL (32.0-37.0); Mean Platelet Volume 10.3 fL (9.5-12.2); Monocytes # (A) 0.28 X 10*3/uL (0.20-1.00); Monocytes % (A) 5.1 %; NRBC Per 100 WBC 0 /100 WBCS (0.0-0.0); Neutrophils # (A) 3.84 X 10*3/uL (1.80-7.70); Neutrophils % (A) 69.2 %; Platelet Count 217 X 10*3/uL (140-440); RBC 2.45 X 10*6/uL (4.10-5.20); WBC 5.54 X 10*3/uL (4.50-10.00)
[2021-09-19 09:25] LABS: African American GFR (CKD) 133.1 (60.0-200.0); Anion Gap 6.9 mmol/L (10.00-18.00); BUN/Creat Ratio 66.84 Ratio (12.00-20.00); Blood Urea Nitrogen 25.6 mg/dL (9.0-27.0); Carbon Dioxide 20.5 mmol/L (20.0-27.5); Non-African American GFR(CKD) 114.8 (60.0-200.0); Potassium 4.4 mmol/L (3.5-5.5)
[2021-09-19 10:02] VITALS: BP 110/58
[2021-09-19] MEDS: NICOTINE 7MG/24HR PATCH TRANSDERM SCH (10:14)
--- NOTE | 2021-09-19 17:23 | P.DS ---
Providers Date of admission: 09/18/21 11:28 Expected date of discharge: 09/19/21 Attending physician: Cristina Lowery DO Consults: 09/18/21 11:27 Consult Physician Urgent Consulting Provider: Yanelis Adam Consult Reason/Comments: upper gi bleed Do you want consulting provider notified?: Already Contacted Primary care physician: Yelena Momin [facility] Course: Discharge Diagnosis: Upper GI bleed secondary to duodenal ulcers and erosive gastritis Acute blood loss anemia GERD History of prior stroke with residual facial droop and left arm weakness Hypertension Tobacco abuse COPD without exacerbation Chronic pain Hospital Course: Patient is a 6-year-old female with a history of COPD, TIA, hypertension, and dyslipidemia who presented to the emergency department after 4 episodes of bloody emesis. In the ER she underwent an extensive evaluation. Her initial fecal occult blood was negative however there was not much stool obtained. Initial hemoglobin in the ER was 10.2. She was found to have chloride of 112 and CO2 of 20. GI was consulted and patient was placed in observation. Her second hemoglobin decreased to 9.6. She was seen by GI and underwent EGD on the morning of 09/19 which showed 2 duodenal ulcers without active bleeding. Her hemoglobin did decrease from 10.6 to 7.9 however it had stayed stable for over 8 hours prior to discharge there is no active bleeding on her EGD. She was determined stable for discharge home. Follow-up: Avoid NSAIDs and alcohol. Protonix 40 mg daily. Follow-up with Dr. Momin. Patient has been out of her medications for quite some time. She should be on aspirin and Plavix at baseline secondary to history of stroke. I've asked her to resume these in 7 days and prescriptions have been provided. She also was provided a prescription for statin medication. Her blood pressure had been controlled so she was not resumed on her beta phillip. Patient seen and examined at bedside. Doing well. Feeling hungry. Denies any abdominal pain is having some gas. Wants to go home. Vital signs reviewed and stable. General: non toxic, no distress, appears older than stated age Derm: warm, dry Head: atraumatic, normocephalic, symmetric Eyes: EOMI, no lid lag, anicteric sclera Mouth: no lip lesion, mucus membranes moist Cardiovascular: S1S2 reg, no murmur, positive posterior tibial pulse bilateral, Lungs: CTA bilateral, no rhonchi, no rales , no accessory muscle use Abdominal: soft, nontender to palpation, no guarding, no appreciable organom egaly Ext: no gross muscle atrophy, no edema, no contractures Neuro: CN II-XI grossly intact, no focal neuro deficits, dystonic movements Psych: Alert, oriented, appropriate affect A total of 25 minutes of time were spent preparing this complex discharge summary . Patient Condition at Discharge: Stable Plan - Discharge Summary Discharge Rx Participant: No New Discharge Prescriptions: New Pantoprazole [Protonix] 40 mg PO DAILY #30 tab Continue Loratadine [Claritin] 10 mg PO DIRECTED Changed Atorvastatin Calcium [Lipitor] 40 mg PO DAILY #30 tab Aspirin EC [Ecotrin Low Dose] 81 mg PO DAILY #0 Clopidogrel Bisulfate [Plavix] 75 mg PO DAILY #30 tab Discontinued Ergocalciferol (Vitamin D2) [Drisdol (50,000 Iu)] 1,250 mcg PO DIRECTED Gabapentin [Neurontin] 600 mg PO DIRECTED Atenolol [Tenormin] 100 mg PO DIRECTED Omeprazole [PriLOSEC] 20 mg PO DIRECTED Discharge Medication List Loratadine [Claritin] 10 mg PO DIRECTED 10/07/20 [History] Aspirin EC [Ecotrin Low Dose] 81 mg PO DAILY #0 09/19/21 [Rx] Atorvastatin Calcium [Lipitor] 40 mg PO DAILY #30 tab 09/19/21 [Rx] Clopidogrel Bisulfate [Plavix] 75 mg PO DAILY #30 tab 09/19/21 [Rx] Pantoprazole [Protonix] 40 mg PO DAILY #30 tab 09/19/21 [Rx] Follow up Appointment(s)/Referral(s): Yelena Momin MD [Primary Care Provider] - 1-2 days Patient Instructions/Handouts: Diet for Stomach Ulcers and Gastritis (ED), GERD (Gastroesophageal Reflux Disease) (ED) Activity/Diet/Wound Care/Special Instructions: Activity: as tolerated Diet: Low acid Special Instructions: Resume Plavix and Aspirin on 09/26/2021 Please follow-up with Dr. Kirk next week and keep follow-up appointment. Avoid NSAIDs and Alcohol Thank you for allowing us the privilege of caring for you. We wish you well on your journey to better health. Discharge Disposition: HOME SELF-CARE
== END 2021-09-19 11:54 | disposition home or self-care (01) ==
LOC: EC 08:14 → 6NMEDSUR 11:28
PROVIDERS: ADMIT Internal Medicine; ATTEND Internal Medicine
DX: K29.51 Unspecified chronic gastritis with bleeding (principal); K22.81 Esophageal polyp; K26.4 Chronic or unspecified duodenal ulcer with hemorrhage; D62 Acute posthemorrhagic anemia; K21.9 Gastro-esophageal reflux disease without esophagitis; I69.392 Facial weakness following cerebral infarction; I69.354 Hemiplegia and hemiparesis following cerebral infarction affecting left non-dominant side; I69.328 Other speech and language deficits following cerebral infarction; I10 Essential (primary) hypertension; F17.200 Nicotine dependence, unspecified, uncomplicated; J44.9 Chronic obstructive pulmonary disease, unspecified; G89.29 Other chronic pain; M54.9 Dorsalgia, unspecified; M25.552 Pain in left hip; M25.551 Pain in right hip; M54.31 Sciatica, right side; G56.03 Carpal tunnel syndrome, bilateral upper limbs; G43.909 Migraine, unspecified, not intractable, without status migrainosus; R01.1 Cardiac murmur, unspecified; I51.7 Cardiomegaly; M06.9 Rheumatoid arthritis, unspecified; E07.9 Disorder of thyroid, unspecified; R00.0 Tachycardia, unspecified; E78.5 Hyperlipidemia, unspecified; R94.4 Abnormal results of kidney function studies; I74.5 Embolism and thrombosis of iliac artery; Z87.19 Personal history of other diseases of the digestive system; Z90.710 Acquired absence of both cervix and uterus; Z90.49 Acquired absence of other specified parts of digestive tract; Z79.02 Long term (current) use of antithrombotics/antiplatelets; Z79.82 Long term (current) use of aspirin; Z79.899 Other long term (current) drug therapy; Z88.5 Allergy status to narcotic agent; T50.996A Underdosing of other drugs, medicaments and biological substances, initial encounter; Z91.128 Patient's intentional underdosing of medication regimen for other reason; Z91.14 Patient's other noncompliance with medication regimen; Z71.9 Counseling, unspecified; Z71.6 Tobacco abuse counseling; Z91.81 History of falling; Z80.6 Family history of leukemia; Z80.1 Family history of malignant neoplasm of trachea, bronchus and lung
CPT/HCPCS: 96374; 96375; 99285; 36415; 93005; 86900; 86901; 88305; 80053; 80048; 83605; 83690; 83735; 84484; 85025 ×2; 85027; 85610; 85730; 86850; 82272; 81003; 74177; 43239; G0378 ×2; J2405 ×2; J2270; J1170; J2704; C9113 ×2; Q9967

== ENCOUNTER → 2021-10-02 | Outpatient (CLI) | payer OTHER ==
[2021-10-02 16:49] LABS: Anisocytosis Slight; Hypochromasia Marked; MCH 29.4 pg (25.0-35.0); MCHC 28.4 g/dL (31.0-37.0); MCV 103.2 fL (80.0-100.0); Macrocytosis Moderate; Mean Platelet Volume 9.1; Poikilocytosis Marked; RBC 1.59 m/uL (3.80-5.40); RDW 16.8 % (11.5-15.5)
[2021-10-02 16:53] LABS: HGB 4.7 gm/dL (11.4-16.0); Platelet Count 352 k/uL (150-450)
[2021-10-02 17:00] LABS: HCT 16.4 % (34.0-46.0)
== END | disposition home or self-care (01) ==
LOC: LABWHC1 15:55
PROVIDERS: ATTEND Family Medicine
DX: K92.2 Gastrointestinal hemorrhage, unspecified (principal)
CPT/HCPCS: 36415; 85027

== ENCOUNTER → 2021-10-30 | Outpatient (CLI) | payer OTHER ==
--- NOTE | 2021-10-30 15:52 | XR ---
EXAMINATION TYPE: XR ribs LT w pa chest xray DATE OF EXAM: 10/30/2021 CLINICAL HISTORY: Chest and left-sided rib pain after fall injury. TECHNIQUE: Single frontal view of the chest is obtained. A frontal and oblique images of the left-martín ed ribs. COMPARISON: Chest x-ray October 07, 2020 FINDINGS: There is mild chronic parenchymal change without suspicious new focal air space opacity, p leural effusion, or pneumothorax seen. The cardiac silhouette size is stable and within normal limit s. Underlying dextroconvex scoliosis is redemonstrated. Osseous structures are demineralized which is noted to lower radiographic sensitivity for evaluation of fine anatomic detail. No definitive acute displaced left-sided rib fractures. Overlying soft tissu e is unremarkable. IMPRESSION: 1. No acute cardiopulmonary process. 2. No acute displaced left-sided rib fractures.
== END | disposition home or self-care (01) ==
LOC: RADXRMAIN 15:26
PROVIDERS: ATTEND Family Medicine
DX: R07.81 Pleurodynia (principal); Z91.81 History of falling

== ENCOUNTER 2022-01-27 05:58 | Day surgery (SDC) | payer OTHER ==
[2022-01-26 10:12] VITALS: BMI 25.0
[~2022-01-27 05:58] MED LIST: ALPRAZolam 0.25 MG TAB PO PRN; ASPIRIN 325 MG TAB PO PRN; HEPARIN SODIUM,PORCINE 10,000 UNIT in SODIUM CHLORIDE 0.9% 1,000 ML IRRIGATION PRN; HEPARIN SODIUM,PORCINE 2,500 UNIT in SODIUM CHLORIDE 0.9% 250 ML IRRIGATION PRN; SODIUM CHLORIDE 0.9% 1,000 ML in EMPTY BAG 1 BAG IV ONE; ZOLPIDEM 5 MG TAB PO PRN
[2022-01-27] MEDS ORDERED: SODIUM CHLORIDE 0.9% 1,000 ML IV ONE (06:16)
[2022-01-27 06:29] VITALS: RESP 16; TEMP 98
[2022-01-27 06:36] LABS: Basophils # (A) 0.1 k/uL (0-0.2); Basophils % (A) 2 %; Eosinophils # (A) 0.7 k/uL (0-0.7); Eosinophils % (A) 13 %; HCT 41.1 % (34.0-46.0); HGB 13.7 gm/dL (11.4-16.0); Lymphocytes # (A) 1.2 k/uL (1.0-4.8); Lymphocytes % (A) 24 %; MCH 32.1 pg (25.0-35.0); MCHC 33.2 g/dL (31.0-37.0); MCV 96.6 fL (80.0-100.0); Mean Platelet Volume 7.1; Monocytes # (A) 0.3 k/uL (0-1.0); Monocytes % (A) 5 %; Neutrophils # (A) 2.6 k/uL (1.3-7.7); Neutrophils % (A) 53 %; Platelet Count 282 k/uL (150-450); RBC 4.25 m/uL (3.80-5.40); RDW 13.3 % (11.5-15.5); WBC 4.9 k/uL (3.8-10.6)
[2022-01-27 06:44] LABS: African American GFR (CKD) >90 (>60 ml/min/1.73 sqM); Anion Gap 7 mmol/L; Blood Urea Nitrogen 26 mg/dL (7-17); Carbon Dioxide 23 mmol/L (22-30); Chloride 106 mmol/L (98-107); Glucose 87 mg/dL (74-99); Non-African American GFR(CKD) >90 (>60 ml/min/1.73 sqM); Potassium 4.2 mmol/L (3.5-5.1); Sodium 136 mmol/L (137-145)
[2022-01-27] MEDS ORDERED: MIDAZOLAM 2 MG/2 ML VIAL IV ONE ×2 (07:51)
[2022-01-27] MEDS ORDERED: LIDOCAINE 1% INJ 10MG/ML (30 ML VIAL-PF) SQ ONE (07:53)
[2022-01-27] MEDS ORDERED: NALOXONE 0.4 MG/ML 1 ML VIAL IVP PRN (08:09)
[2022-01-27] MEDS ORDERED: IOPAMIDOL-250 100ML BTL INTRAARTER ONE (08:12)
--- NOTE | 2022-01-27 08:13 | P.PCN ---
Date of Procedure: 01/27/22 Operative Findings: AN ABDOMINAL AORTOGRAM AND BILATERAL LOWER EXTREMITIES RUNOFF PERFORMING PHYSICIAN: Wade Clark MD PROCEDURE PERFORMED: 1. An abdominal aortogram 2. Bilateral lower extremities runoff INDICATION: This is a 61-year-old female patient with multiple risk factors who was experiencing left leg intermittent claudication almost evidence of critical limb ischemia with a resting pain. She underwent arterial duplex study came in to be abnormal showing evidence of increased peak systolic velocity above the left common femoral artery left external iliac artery. For that reason she was brought for angiogram COMPLICATION: None LEVEL OF SEDATION: Moderate was sedation length of 11 minutes APPROACH: Right common femoral artery PROCEDURE DESCRIPTION: After obtaining informed consent and explaining the procedure benefits, risks, and complications, the patient was brought to the cardiac dental laboratory technician. The right groin was prepped and draped in sterile fashion. The right common femoral artery was cannulated using micropuncture technique, under ultrasound guidance. A micropuncture wire was advanced, and the micropuncture sheath was advanced over the wire, then the micropuncture sheath was exchanged over an 0.35 wire into a 5-Estonian sheath dilator assembly then the wire and dilator were removed and sheath was flushed. We did an abdominal aortogram and bilateral lower extremities runoff using 5- Estonian pigtail catheter using a power injection. The catheter was initially placed at the level of the renal arteries, and it was pulled into above the bifurcation of the aorta into right and left common iliac arteries. The procedure was completed and there was no complications. SELECTIVE PERIPHERAL ANGIOGRAM: The abdominal aorta: Is calcified was mild to moderate diffuse disease only. The common iliac arteries: The right common iliac artery appears to have a tight lesion in the proximal portion. The left common iliac artery is occluded. The external iliac arteries: The right external iliac artery is patent. The left external iliac artery is patent as well. The internal iliac arteries: Both internal iliac arteries are patent The common femoral arteries: Are angiographically normal Superficial femoral arteries: Artery angiographically normal Popliteal arteries: And are angiographically normal Below the knees: There are 3 vessels run off below the knee bilaterally CONCLUSION: Severe disease involving the right common iliac artery and occluded left common iliac are POSTPROCEDURE MANAGEMENT: Proceeded was SHOT LIGHTER of bilateral iliac
[2022-01-27] MEDS ORDERED: SODIUM CHLORIDE 0.9% 1,000 ML in EMPTY BAG 1 BAG IV SCH (08:15)
[2022-01-27] MEDS ORDERED: BUTALB/APAP/CAFF 50-325-40MG TAB PO STA (08:50)
[2022-01-27] MEDS ORDERED: PANTOPRAZOLE 40 MG TABLET PO STA (10:20)
[2022-01-27] MEDS ORDERED: HYDROmorphone 0.5 MG/0.5 ML SYRINGE IVP STA (10:20)
[2022-01-27 16:16] VITALS: BP 125/57; PULSE 62
== END 2022-01-27 14:45 | disposition home or self-care (01) ==
LOC: CATHCVL 05:58
PROVIDERS: ATTEND Internal Medicine Interventional Cardiology
DX: I70.213 Atherosclerosis of native arteries of extremities with intermittent claudication, bilateral legs (principal); Z20.822 Contact with and (suspected) exposure to COVID-19
CPT/HCPCS: 36200; 75625; 75716; 76937; 80048; 85025; 87635; C1769 ×5; C1894; J2250; J2001; Q9966

== ENCOUNTER 2022-03-08 16:17 | Emergency (ER) | payer OTHER ==
[2022-03-08 16:30] VITALS: TEMP 97.7
--- NOTE | 2022-03-08 16:59 | XR ---
EXAMINATION TYPE: XR chest 2V DATE OF EXAM: 03/08/2022 COMPARISON: NONE HISTORY: Chest pain TECHNIQUE: 2 views FINDINGS: Heart is normal. Lungs are clear. Diaphragm is normal. Bony thorax is intact. Thoracic aort a is atheromatous. IMPRESSION: No active cardiopulmonary disease. Normal heart. No change.
[2022-03-08 17:32] LABS: Basophils # (A) 0.1 k/uL (0-0.2); Basophils % (A) 1 %; Eosinophils # (A) 0.3 k/uL (0-0.7); Eosinophils % (A) 3 %; HCT 37.7 % (34.0-46.0); HGB 12.3 gm/dL (11.4-16.0); Lymphocytes # (A) 0.3 k/uL (1.0-4.8); Lymphocytes % (A) 4 %; MCH 32.7 pg (25.0-35.0); MCHC 32.8 g/dL (31.0-37.0); MCV 99.7 fL (80.0-100.0); Mean Platelet Volume 7.2; Monocytes # (A) 0.4 k/uL (0-1.0); Monocytes % (A) 4 %; Neutrophils # (A) 7.6 k/uL (1.3-7.7); Neutrophils % (A) 88 %; Platelet Count 192 k/uL (150-450); RBC 3.78 m/uL (3.80-5.40); WBC 8.6 k/uL (3.8-10.6)
[2022-03-08 17:42] LABS: INR 0.9 (<1.2); Prothrombin Time 10.2 sec (9.0-12.0)
[2022-03-08 18:13] LABS: ALT 115 U/L (4-34); AST 301 U/L (14-36); African American GFR (CKD) >90 (>60 ml/min/1.73 sqM); Albumin 3.8 g/dL (3.5-5.0); Alkaline Phosphatase 137 U/L (38-126); Anion Gap 11 mmol/L; Blood Urea Nitrogen 27 mg/dL (7-17); Calcium 8.8 mg/dL (8.4-10.2); Carbon Dioxide 22 mmol/L (22-30); Chloride 106 mmol/L (98-107); Glucose 96 mg/dL (74-99); Magnesium 1.8 mg/dL (1.6-2.3); Non-African American GFR(CKD) >90 (>60 ml/min/1.73 sqM); Potassium 4.2 mmol/L (3.5-5.1); Sodium 139 mmol/L (137-145); Total Bilirubin 0.4 mg/dL (0.2-1.3); Total Protein 6.7 g/dL (6.3-8.2)
[2022-03-08] MEDS ORDERED: diphenhydrAMINE 50 MG/ML 1 ML VIAL IVP STA (21:31)
[2022-03-08] MEDS ORDERED: FAMOTIDINE 20 MG/2 ML VIAL IV STA (21:31)
[2022-03-08] MEDS ORDERED: MAG HYDROX/AL HYDROX/SIMETH 30 ML, HYOSCYAMINE ELIXIR 10 ML, LIDOCAINE VISCOUS 2% 10 ML PO STA ×3 (21:31)
[2022-03-08] MEDS ORDERED: ONDANSETRON 4 MG/2 ML VIAL IVP STA (21:31)
[2022-03-08] MEDS ORDERED: SODIUM CHLORIDE 0.9% 1,000 ML IV STA (21:32)
--- NOTE | 2022-03-08 21:42 | ED ---
General Adult HPI - General Chief complaint: Chest Pain Stated complaint: Chest pain,L arm numbness Time Seen by Provider: 03/08/22 21:20 Source: patient, RN notes reviewed, old records reviewed Mode of arrival: ambulatory Limitations: no limitations - History of Present Illness Initial comments: Patient is a 61-year-old female who presents emergency Department complaining of what she describes as chest pain. However she points to her epigastric region. Describes it as an achy sensation. States she has a history of GI bleed is concerned that something might be what is going on. She states previously she had episodes of emesis. States today she just feels nauseous with the pain. Pain does not radiate. Denies any upper chest pain. Denies any shortness of breath. Denies any diarrhea. Denies any sick contacts, fevers, chills. Patient is on Plavix. Presents over concern for her symptoms. She wanted to be evaluated. I evaluated the patient and she is placed in a room. She is been here for multiple hours. No active emesis and no signs of bleeding. Resting comfortably on the stretcher.Triage note states left arm numbness., And that she feels like she is suffocating. She states those were momentary feelings, and have since resolved. Symptoms started approximately 3 PM. Is currently 9:30pm. - Related Data Home Medications Medication Instructions Recorded Confirmed Loratadine [Claritin] 10 mg PO DAILY 10/07/20 01/27/22 Atorvastatin Calcium [Lipitor] 40 mg PO HS 10/02/21 01/27/22 Fioricet(Dose Unknown) 1 tab PO DIRECTED PRN 01/26/22 01/27/22 Gabapentin 600 mg PO HS 01/26/22 01/27/22 atenoloL [Tenormin] 100 mg PO 1200 01/26/22 01/27/22 Previous Rx's Medication Instructions Recorded Aspirin EC [Ecotrin Low Dose] 81 mg PO DAILY #0 09/19/21 Clopidogrel Bisulfate [Plavix] 75 mg PO DAILY #30 tab 09/19/21 Pantoprazole [Protonix] 40 mg PO DAILY #30 tab 09/19/21 Allergies Allergy/AdvReac Type Severity Reaction Status Date / Time codeine Allergy Swelling Verified 03/08/22 16:30 Review of Systems ROS Statement: Those systems with pertinent positive or pertinent negative responses have been documented in the HPI. Review of Systems: CONST: Denies fever EYES: Denies blurry vision ENT: Denies nasal congestion C/V: Denies Chest pain RESP: Denies shortness of breath GI: Endorses abdominal pain. : Denies dysuria SKIN: Denies rash. MSK: Denies joint pain. NEURO: Denies headache ROS Other: All systems not noted in ROS Statement are negative. Past Medical History Past Medical History: Asthma, COPD, CVA/TIA, GERD/Reflux, GI Bleed, Hyperlipidemia, Hypertension, Osteoarthritis (OA), Pneumonia, Rheumatoid Arthritis (RA), Thyroid Disorder, Vascular Disorder Additional Past Medical History / Comment(s): fell couple years ago and had a fracture displaced L clavicle, CVA(X 5-last 6 months ago) with some speech difficulty/L arm and leg weakness, enlarged heart, valvular disease, murmur, colitis, diverticular disease, thyroid benign nodules, R breast benign cyst, L breast benign mass, chronic back/bilateral hip pain, sciatica R sided, bilateral carpal tunnel syndrome, migraines, hx infected spider bite, episode of vomiting blood about 5 months ago History of Any Multi-Drug Resistant Organisms: None Reported Past Surgical History: Appendectomy, Hysterectomy, Orthopedic Surgery, Tonsillec patrica Additional Past Surgical History / Comment(s): EGD, colonoscopy, R carpal tunnel release Past Anesthesia/Blood Transfusion Reactions: No Reported Reaction Past Psychological History: Depression Smoking Status: Current every day smoker Past Alcohol Use History: None Reported Past Drug Use History: None Reported - Past Family History Father Family Medical History: Cancer Additional Family Medical History / Comment(s): Father of leukemia. Brother(s) Family Medical History: Cancer Additional Family Medical History / Comment(s): Brother of leukemia Mother Family Medical History: Cancer Additional Family Medical History / Comment(s): Mother of lung cancer. General Exam - General Exam Comments Initial Comments: General: Appears in no acute distress. HEAD: Normal with no signs of head trauma. EYES: PERRLA, EOMI, conjunctiva normal, no discharge. ENT: Hearing grossly intact, normal oropharynx. RESPIRATORY: Clear breath sounds bilaterally. No wheezes, rales, or rhonchi. C/V: Regular rate and rhythm. S1 and S2 auscultated, no edema, peripheral pulses 2+ and intact throughout ABD: Abdomen is soft, nondistended. Mildly tender to palpation epigastric region. No guarding. No rebound tenderness. No peritoneal signs. EXT: Normal range of motion, no obvious deformity SKIN: No rashes or lesions observed on exposed skin. NEURO: Alert and oriented 4. Limitations: no limitations Course Vital Signs 03/08/22 16:27 Temperature 97.7 F Pulse Rate 92 Respiratory 20 Rate Blood Pressure 113/67 O2 Sat by Pulse 97 Oximetry Medical Decision Making - Medical Decision Making Based on the patient's presentation and physical exam, I do believe she is likely experiencing epigastric abdominal pain rather than chest pain. However cannot rule out atypical causes of ACS. Laboratory studies were already init iated, and remarkable for an undetectable troponin. Patient does have mildly elevated AST, ALT, alk phos. I would like to obtain further laboratory studies including pancreatic enzymes, as well as a second troponin. Right upper quadrant ultrasound will be obtained as well. She'll be symptomatically treated. Patient was in agreement this plan. Vital signs are within normal limits. EKG shows no signs of acute ischemia.Patient's ultrasound revealed no gallstones or dilated ducts. Normal exam. Repeat troponin was within normal limits. Amylase and lipase are within normal limits. On reevaluation, patient is feeling somewhat improved. I did discuss results with her. I believe it is safer to be discharged home at this time. She is asking for dose of Protonix and Toradol. This is reasonable. I recommended she follow up with her PCP this week. She was in agreement this plan. She has Protonix at home which she uses for this pain chronically. I recommended she avoid any Tylenol or Motrin the event that she may have an ulcer. Strict return precautions were discussed including any hemoptysis, worsening pain, worsening nausea and vomiting. She was in agreement this plan. I instructed the patient to follow up with their PCP in the next 1-3 days. I ex plained that the patient should return to the emergency department if they experience any worsening symptoms. Strict return precautions were discussed with the patient. The patient expressed understanding of these instructions. I answered all questions that the patient had. The patient was discharged home in good condition with their prescriptions and follow up information. - Lab Data Result diagrams: 03/08/22 17:03 03/08/22 17:03 Lab Results 03/08/22 03/08/2203/08/22 Range/Units 17:03 17:03 17:03 WBC 8.6 (3.8-10.6) k/uL RBC 3.78 L (3.80-5.40) m/uL Hgb 12.3 (11.4-16.0) gm/dL Hct 37.7 (34.0-46.0) % MCV 99.7 (80.0-100.0) fL MCH 32.7 (25.0-35.0) pg MCHC 32.8 (31.0-37.0) g/dL RDW 13.0 (11.5-15.5) % Plt Count 192 (150-450) k/uL MPV 7.2 Neutrophils % 88 % Lymphocytes % 4 % Monocytes % 4 % Eosinophils % 3 % Basophils % 1 % Neutrophils # 7.6 (1.3-7.7) k/uL Lymphocytes # 0.3 L (1.0-4.8) k/uL Monocytes # 0.4 (0-1.0) k/uL Eosinophils # 0.3 (0-0.7) k/uL Basophils # 0.1 (0-0.2) k/uL PT 10.2 (9.0-12.0) sec INR 0.9 (<1.2) APTT 25.0 (22.0-30.0) sec Sodium 139 (137-145) mmol/L Potassium 4.2 (3.5-5.1) mmol/L Chloride 106 (98-107) mmol/L Carbon Dioxide 22 (22-30) mmol/L Anion Gap 11 mmol/L BUN 27 H (7-17) mg/dL Creatinine 0.70 (0.52-1.04) mg/dL Est GFR (CKD-EPI)AfAm >90 (>60 ml/min/1.73 sqM) Est GFR (CKD-EPI)NonAf >90 (>60 ml/min/1.73 sqM) Glucose 96 (74-99) mg/dL Calcium 8.8 (8.4-10.2) mg/dL Magnesium 1.8 (1.6-2.3) mg/dL Total Bilirubin 0.4 (0.2-1.3) mg/dL AST 301 H (14-36) U/L ALT 115 H (4-34) U/L Alkaline Phosphatase 137 H (38-126) U/L Troponin I (0.000-0.034) ng/mL Total Protein 6.7 (6.3-8.2) g/dL Albumin 3.8 (3.5-5.0) g/dL Amylase (30-110) U/L Lipase (23-300) U/L 03/08/22 03/08/22 03/08/22 Range/Units 17:03 21:20 21:29 WBC (3.8-10.6) k/uL RBC (3.80-5.40) m/uL Hgb (11.4-16.0) gm/dL Hct (34.0-46.0) % MCV (80.0-100.0) fL MCH (25.0-35.0) pg MCHC (31.0-37.0) g/dL RDW (11.5-15.5) % Plt Count (150-450) k/uL MPV Neutrophils % % Lymphocytes % % Monocytes % % Eosinophils % % Basophils % % Neutrophils # (1.3-7.7) k/uL Lymphocytes # (1.0-4.8) k/uL Monocytes # (0-1.0) k/uL Eosinophils # (0-0.7) k/uL Basophils # (0-0.2) k/uL PT (9.0-12.0) sec INR (<1.2) APTT (22.0-30.0) sec Sodium (137-145) mmol/L Potassium (3.5-5.1) mmol/L Chloride (98-107) mmol/L Carbon Dioxide (22-30) mmol/L Anion Gap mmol/L BUN (7-17) mg/dL Creatinine (0.52-1.04) mg/dL Est GFR (CKD-EPI)AfAm (>60 ml/min/1.73 sqM) Est GFR (CKD-EPI)NonAf (>60 ml/min/1.73 sqM) Glucose (74-99) mg/dL Calcium (8.4-10.2) mg/dL Magnesium (1.6-2.3) mg/dL Total Bilirubin (0.2-1.3) mg/dL AST (14-36) U/L ALT (4-34) U/L Alkaline Phosphatase (38-126) U/L Troponin I <0.012 <0.012 (0.000-0.034) ng/mL Total Protein (6.3-8.2) g/dL Albumin (3.5-5.0) g/dL Amylase 67 (30-110) U/L Lipase 234 (23-300) U/L - EKG Data -: EKG Interpreted by Me EKG Comments: 12-lead Electrocardiogram Interpretation Note EKG was reviewed and interpreted by myself. 12-lead ECG performed at 1703 is interpreted by me as revealing normal sinus rhythm at a rate of default value beats per minute. [place] is normal. There were no ST or T wave abnormalities to suggest myocardial ischemia or injury. R wave progression across the precordium was satisfactory. By my interpretation this EKG is non-diagnostic for acute ischemia. Disposition Clinical Impression: Abdominal pain of unknown etiology Disposition: HOME SELF-CARE Condition: Good Instructions (If sedation given, give patient instructions): Abdominal Pain (ED) Is patient prescribed a controlled substance at d/c from ED?: No Referrals: Yelena Momin MD [Primary Care Provider] - 1-2 days Time of Disposition: 22:50
[2022-03-08 22:29] LABS: Amylase 67 U/L (30-110); Lipase 234 U/L (23-300)
--- NOTE | 2022-03-08 22:45 | US ---
EXAMINATION TYPE: US gallbladder DATE OF EXAM: 03/08/2022 COMPARISON: CT 2021 CLINICAL HISTORY: epigastric/ruq pain. Epigastric pain x 1 day TECHNIQUE: Multiple sonographic images of the right upper quadrant are obtained. FINDINGS: EXAM MEASUREMENTS: Liver Length: 14.3 cm Gallbladder Wall: 0.2 cm CBD: 0.4 cm Right Kidney: 9.9 x 4.7 x 4.4 cm Pancreas: visualized portions wnl, limited by overlying midline bowel gas Liver: wnl Gallbladder: wnl Evidence for sonographic Diaz's sign: no CBD: wnl Right Kidney: wnl IMPRESSION: No gallstones or dilated ducts.
[2022-03-08] MEDS ORDERED: KETOROLAC 15 MG/ML 1 ML VIAL IVP STA (22:59)
[2022-03-08] MEDS ORDERED: PANTOPRAZOLE 40 MG/10 ML VIAL IVP STA (22:59)
[2022-03-08 23:27] VITALS: BP 122/57; PULSE 63; RESP 18
== END 2022-03-08 23:50 | disposition home or self-care (01) ==
LOC: EC 16:17
DX: R10.13 Epigastric pain (principal); R07.89 Other chest pain; F17.200 Nicotine dependence, unspecified, uncomplicated; J44.9 Chronic obstructive pulmonary disease, unspecified; K21.9 Gastro-esophageal reflux disease without esophagitis; E78.5 Hyperlipidemia, unspecified; I10 Essential (primary) hypertension; M19.90 Unspecified osteoarthritis, unspecified site; Z88.5 Allergy status to narcotic agent; Z79.899 Other long term (current) drug therapy; Z86.73 Personal history of transient ischemic attack (TIA), and cerebral infarction without residual deficits
CPT/HCPCS: 36415; 93005; 80053; 82150; 83690; 83735; 84484; 85025; 85610; 85730; 71046; 76705; 99285; 96374; 96375; 96361; J1200; J2405; J1885; C9113

== ENCOUNTER 2022-04-15 09:04 | Day surgery (SDC) | payer OTHER ==
[2022-04-14 14:52] VITALS: BMI 24.7
[~2022-04-15 09:04] MED LIST changes: -HEPARIN SODIUM,PORCINE 10,000 UNIT in SODIUM CHLORIDE 0.9% 1,000 ML IRRIGATION PRN; -HEPARIN SODIUM,PORCINE 2,500 UNIT in SODIUM CHLORIDE 0.9% 250 ML IRRIGATION PRN; -ZOLPIDEM 5 MG TAB PO PRN
[2022-04-15 09:30] LABS: Basophils # (A) 0.1 k/uL (0-0.2); Basophils % (A) 1 %; Eosinophils % (A) 15 %; HCT 37.5 % (34.0-46.0); HGB 12.8 gm/dL (11.4-16.0); Lymphocytes % (A) 15 %; MCH 32.9 pg (25.0-35.0); MCHC 34.2 g/dL (31.0-37.0); MCV 96.1 fL (80.0-100.0); Mean Platelet Volume 8.1; Monocytes # (A) 0.5 k/uL (0-1.0); Monocytes % (A) 7 %; Neutrophils # (A) 3.9 k/uL (1.3-7.7); Neutrophils % (A) 59 %; Platelet Count 233 k/uL (150-450); RDW 12.5 % (11.5-15.5); WBC 6.6 k/uL (3.8-10.6)
[2022-04-15 09:44] LABS: African American GFR (CKD) >90 (>60 ml/min/1.73 sqM); Anion Gap 8 mmol/L; Blood Urea Nitrogen 19 mg/dL (7-17); Calcium 8.6 mg/dL (8.4-10.2); Carbon Dioxide 27 mmol/L (22-30); Chloride 103 mmol/L (98-107); Glucose 89 mg/dL (74-99); Non-African American GFR(CKD) >90 (>60 ml/min/1.73 sqM); Potassium 4.1 mmol/L (3.5-5.1); Sodium 138 mmol/L (137-145)
[2022-04-15] MEDS ORDERED: HEPARIN SODIUM 1,000 UN/ML (10ML VL) ONE (11:49)
[2022-04-15] MEDS: MIDAZOLAM 2 MG/2 ML VIAL IV ONE ×2 (11:52→12:51)
[2022-04-15] MEDS ORDERED: LIDOCAINE 1% INJ 10MG/ML (30 ML VIAL-PF) SQ ONE (11:58)
[2022-04-15] MEDS ORDERED: fentaNYL (PF) 50 MCG/ML 2 ML AMP ONE (11:58)
[2022-04-15] MEDS: fentaNYL (PF) 50 MCG/ML 2 ML AMP IV ONE ×2 (12:00→12:51)
[2022-04-15] MEDS: HYDROmorphone 0.5 MG/0.5 ML SYRINGE IVP ONE ×2 (12:06→16:14)
[2022-04-15] MEDS ORDERED: HEPARIN SODIUM 1,000 UN/ML (10ML VL) IV ONE (12:12)
[2022-04-15] MEDS ORDERED: CLOPIDOGREL 75 MG TAB ONE (13:20)
[2022-04-15] MEDS ORDERED: IOPAMIDOL-250 100ML BTL INTRAARTER ONE (13:21)
[2022-04-15] MEDS ORDERED: ACETAMINOPHEN TAB 500 MG TAB PO PRN (13:21)
[2022-04-15] MEDS ORDERED: AMITRIPTYLINE HCL 50 MG TAB PO PRN (13:21)
[2022-04-15] MEDS ORDERED: ASPIRIN 81 MG PO PRN (13:21)
[2022-04-15] MEDS ORDERED: BUTALB/APAP/CAFF 50-325-40MG TAB PO PRN (13:21)
[2022-04-15] MEDS ORDERED: NALOXONE 0.4 MG/ML 1 ML VIAL IVP PRN (13:22)
[2022-04-15] MEDS ORDERED: CLOPIDOGREL 75 MG TAB PO ONE (13:22)
[2022-04-15] MEDS ORDERED: diphenhydrAMINE 25 MG CAP PO PRN (14:30)
--- NOTE | 2022-04-15 19:31 | P.PCN ---
Date of Procedure: 04/15/22 Operative Findings: Percutaneous peripheral intervention Performing physician Lilia Quezada MD Procedure performed Successful stenting of the right and left common using using 6.0 x 39 mm on the left and 6.0 x 59 mm on the right, both balloon expandable sten Successful stenting of the left external iliac artery using 8.0 by handed millimeter self expandable stent Intravascular ultrasound of bilateral common and external iliacs arteries and aorta Selective angiogram of bilateral common , and external iliac arteries and femoral arteries Ultrasound-guided access of both femoral arterie Indication This is a 61-year-old female patient with history of bilateral lower extremities PAD who was experiencing bilateral lower extremities discomfort/intermittent claudication disabling and interfering with her daily activities. She had an angiogram which revealed severe aortoiliac disease. For that reason she was brought today for intervention Approach Right and left common femoral arteries Complication None Level of sedation Moderate Procedure description After obtaining informed consent the patient was brought to the cardiac laboratory scientist. Right and left common femoral arteries were cannulated using micropuncture technique under ultrasound guidance, the micropuncture wire passed easily in a place a 6 Sinhala 23 cm in both groins. At that point anticoagulation was initiated using heparin with continuous ACT monitoring. After that I was able to cross the chronic total occlusion of the left iliac using 035 stiff Glidewire with the backup support a 5 Sinhala CXI catheter. The wire was advanced to the distal aorta/abdominal aorta. Subsequently the catheter was advanced over the wire then after that I pulled the wire out and injected through the catheter to prove that I was in the true lumen. After that a cast the right iliac using a 035 wire as well. Subsequently I did exchange my 035 wires bilaterally in 2013 wire and I did intravascular ultrasound of both iliacs as well as aorta. That showed a diameter of the iliac around 6 mm. Subsequently I did want angioplasty in a kissing technique for both iliacs using 5 mm balloon. After that I deployed on the right side 6 x 59 and on the left side 6 x 39. Both were balloon expandable stents. Both deployed in a kissing technique. Then on the left side extended the stent using self expandable stent which was 8 by Julius. Postdilatation was performed using 7 mm balloon. Subsequently dual injection simultaneously was performed through the sheath on both sides after the sheath was advanced inside the stents bilaterally. The final angiogram showed excellent angiographic results and the procedure was completed without any complication After that I did exchange my long sheath into short sheath using a 035 wire and I did selective bilateral common femoral arteries angiogram Postprocedure management Dual antiplatelet therapy Aggressive cholesterol control Risk factors modifications Follow-up with the patient
[2022-04-15] MEDS ORDERED: GABAPENTIN 300 MG CAP PO SCH (21:00)
[2022-04-15] MEDS ORDERED: atenoloL 50 MG TAB PO SCH (21:00)
[2022-04-15] MEDS ORDERED: ATORVASTATIN 40 MG TAB PO SCH (21:00)
[2022-04-15] MEDS ORDERED: CITALOPRAM HYDROBROMIDE 20 MG TAB PO SCH (21:00)
[2022-04-15] MEDS ORDERED: LORATADINE 10 MG TAB PO SCH (21:00)
[2022-04-15] MEDS ORDERED: CLOPIDOGREL 75 MG TAB PO SCH (21:00)
[2022-04-15] MEDS ORDERED: cilostazoL 100 MG TAB PO SCH (21:00)
[2022-04-15] MEDS: HYDROmorphone 0.5 MG/0.5 ML SYRINGE IVP PRN (21:35)
[2022-04-16 04:11] VITALS: TEMP 98.2
[2022-04-16] MEDS: HYDROmorphone 0.5 MG/0.5 ML SYRINGE IVP PRN (05:23)
[2022-04-16 07:12] LABS: Basophils # (A) 0.1 k/uL (0-0.2); Basophils % (A) 1 %; Eosinophils # (A) 0.8 k/uL (0-0.7); Eosinophils % (A) 15 %; HCT 35.1 % (34.0-46.0); HGB 11.9 gm/dL (11.4-16.0); Lymphocytes # (A) 0.7 k/uL (1.0-4.8); Lymphocytes % (A) 13 %; MCH 32.7 pg (25.0-35.0); MCHC 33.9 g/dL (31.0-37.0); MCV 96.6 fL (80.0-100.0); Mean Platelet Volume 8.2; Monocytes # (A) 0.4 k/uL (0-1.0); Monocytes % (A) 7 %; Neutrophils # (A) 3.3 k/uL (1.3-7.7); Neutrophils % (A) 61 %; Platelet Count 198 k/uL (150-450); RBC 3.63 m/uL (3.80-5.40); RDW 12.1 % (11.5-15.5); WBC 5.5 k/uL (3.8-10.6)
[2022-04-16 07:31] LABS: African American GFR (CKD) >90 (>60 ml/min/1.73 sqM); Anion Gap 8 mmol/L; Blood Urea Nitrogen 8 mg/dL (7-17); Calcium 8.3 mg/dL (8.4-10.2); Carbon Dioxide 24 mmol/L (22-30); Chloride 106 mmol/L (98-107); Glucose 101 mg/dL (74-99); Non-African American GFR(CKD) >90 (>60 ml/min/1.73 sqM); Potassium 4.2 mmol/L (3.5-5.1); Sodium 138 mmol/L (137-145)
[2022-04-16 08:50] VITALS: BP 143/69; PULSE 64; RESP 16
[2022-04-16] MEDS ORDERED: PANTOPRAZOLE 40 MG TABLET PO SCH (09:00)
--- NOTE | 2022-04-16 09:22 | IR ---
EXAMINATION TYPE: IR stent intravas non coronary DATE OF EXAM: 04/15/2022 COMPARISON: NONE HISTORY: Fluoroscopy time. Fluoroscopy was provided to the referring clinician.
--- NOTE | 2022-04-16 09:22 | IR ---
EXAMINATION TYPE: IR stent intravas non coronary DATE OF EXAM: 04/15/2022 COMPARISON: NONE HISTORY: Fluoroscopy time. Fluoroscopy was provided to the referring clinician.
--- NOTE | 2022-04-16 12:00 | P.DS ---
Providers Attending physician: Wade Clark Primary care physician: [facility] Course: This is a 61-year-old female patient went underwent yesterday successful stenting of the right and left common iliac arteries in kissing technique with an excellent angiographic results by the end She was seen this morning. She does have right groin bruises underwent sigmoid is soft and nontender and no hematoma noted. She's going to be discharged home on dual antiplatelet therapy and I'll follow- up with the patient in a week in the office Plan - Discharge Summary Discharge Rx Participant: Yes New Discharge Prescriptions: No Action Gabapentin 600 mg PO HS atenoloL [Tenormin] 100 mg PO HS cilostazoL [Cilostazol] 50 mg PO HS Aspirin EC [Ecotrin Low Dose] 81 mg PO HS PRN PRN Reason: SLEEP,ANXIETY Citalopram Hydrobromide [CeleXA] 20 mg PO HS Albuterol Inhaler (Unk Dose) 1 puff INHALATION BID Loratadine [Claritin] 10 mg PO HS Pantoprazole [Protonix] 40 mg PO DAILY #30 tab Atorvastatin Calcium [Lipitor] 40 mg PO HS Clopidogrel Bisulfate [Plavix] 75 mg PO HS Butalb/APAP/Caff 50-325-40Mg [Fioricet 50-325-40] 1 tab PO DIRECTED PRN PRN Reason: Migraine Headache Amitriptyline HCl 50 mg PO HS PRN PRN Reason: ANXIETY,SLEEP Acetaminophen/Diphenhydramine [Tylenol PM 500-25mg] 1 tab PO HS PRN PRN Reason: Pain Discharge Medication List Loratadine [Claritin] 10 mg PO HS 10/07/20 [History] Pantoprazole [Protonix] 40 mg PO DAILY #30 tab 09/19/21 [Rx] Atorvastatin Calcium [Lipitor] 40 mg PO HS 10/02/21 [History] Gabapentin 600 mg PO HS 01/26/22 [History] atenoloL [Tenormin] 100 mg PO HS 01/26/22 [History] Acetaminophen/Diphenhydramine [Tylenol PM 500-25mg] 1 tab PO HS PRN 03/31/22 [History] Albuterol Inhaler (Unk Dose) 1 puff INHALATION BID 03/31/22 [History] Amitriptyline HCl 50 mg PO HS PRN 03/31/22 [History] Aspirin EC [Ecotrin Low Dose] 81 mg PO HS PRN 03/31/22 [History] Butalb/APAP/Caff 50-325-40Mg [Fioricet 50-325-40] 1 tab PO DIRECTED PRN 03/31/22 [History] Citalopram Hydrobromide [CeleXA] 20 mg PO HS 03/31/22 [History] Clopidogrel Bisulfate [Plavix] 75 mg PO HS 03/31/22 [History] cilostazoL [Cilostazol] 50 mg PO HS 03/31/22 [History] Follow up Appointment(s)/Referral(s): Wade Clark MD [STAFF PHYSICIAN] - 04/24/22 1:30 pm
[2022-04-16] MEDS ORDERED: traMADol 50 MG TAB PO STA (12:12)
== END 2022-04-16 12:40 | disposition home or self-care (01) ==
LOC: CATHCVL 09:04 → 6NMEDSUR 13:25 → CATHCVL 04-16 12:40
PROVIDERS: ATTEND Internal Medicine Interventional Cardiology
DX: I70.213 Atherosclerosis of native arteries of extremities with intermittent claudication, bilateral legs (principal); I10 Essential (primary) hypertension; E78.5 Hyperlipidemia, unspecified; I65.23 Occlusion and stenosis of bilateral carotid arteries; F17.210 Nicotine dependence, cigarettes, uncomplicated; Z82.49 Family history of ischemic heart disease and other diseases of the circulatory system; Z87.19 Personal history of other diseases of the digestive system; Z86.73 Personal history of transient ischemic attack (TIA), and cerebral infarction without residual deficits; Z79.02 Long term (current) use of antithrombotics/antiplatelets; Z79.82 Long term (current) use of aspirin; Z79.899 Other long term (current) drug therapy
CPT/HCPCS: 37221; 37223; 37252; 37253; 80048 ×2; 85025 ×2; C1769 ×7; C1894 ×2; C1725; C1876 ×2; C1753; J2250; J2001; J3010; J1644; J1170 ×2; Q9966

== ENCOUNTER → 2023-10-15 | Outpatient (CLI) | payer OTHER ==
[2023-10-15 16:06] LABS: HCT 39.2 % (37.2-46.3); MCHC 33.2 g/dL (32.0-37.0); MCV 96.6 FL (80.0-97.0); Mean Platelet Volume 9.6 FL (9.5-12.2); NRBC Per 100 WBC 0 X 10*3/uL (0.00-0.01); Platelet Count 229 X 10*3/uL (140-440); RBC 4.06 X 10*6/uL (4.10-5.20); RDW 12.6 % (11.5-14.5); WBC 4.65 X 10*3/uL (4.50-10.00)
[2023-10-15 18:37] LABS: Blood Urea Nitrogen 16.1 mg/dL (9.0-27.0); Carbon Dioxide 23.1 mmol/L (21.6-31.8); Chloride 107 mmol/L (96-109); Potassium 4.4 mmol/L (3.5-5.5); Sodium 140 mmol/L (135-145)
== END | disposition home or self-care (01) ==
LOC: LABPAT 13:03
PROVIDERS: ATTEND Internal Medicine Interventional Cardiology
DX: Z01.812 Encounter for preprocedural laboratory examination (principal); R07.9 Chest pain, unspecified; R06.02 Shortness of breath
CPT/HCPCS: 36415; 80051; 82565; 84520; 85027

== ENCOUNTER 2023-10-18 07:10 | Day surgery (SDC) | payer OTHER ==
[~2023-10-18 07:10] MED LIST changes: +ALPRAZolam 0.5 MG TAB PO PRN; +ASPIRIN 325 MG TAB PO ONE; -ASPIRIN 325 MG TAB PO PRN; +NITROGLYCERIN SL TABS 0.4 MG TAB SUBLINGUAL PRN; -SODIUM CHLORIDE 0.9% 1,000 ML in EMPTY BAG 1 BAG IV ONE
[2023-10-18] MEDS: SODIUM CHLORIDE 0.9% 1,000 ML in EMPTY BAG 1 BAG IV SCH (07:30)
[2023-10-18 07:41] VITALS: RESP 18; TEMP 98.3
[2023-10-18] MEDS ORDERED: VERAPAMIL 2.5 MG/ML 2 ML AMP ONE (09:09)
[2023-10-18] MEDS ORDERED: LIDOCAINE 1% INJ 10MG/ML (20 ML MDV) ONE (09:09)
[2023-10-18] MEDS: BENZOCAINE SPRAY 1 CAN TOPICAL ONE ×2 (09:28→09:45)
[2023-10-18] MEDS: SODIUM CHLORIDE 0.9% 1,000 ML IV ONE (09:28)
[2023-10-18] MEDS ORDERED: fentaNYL (PF) 50 MCG/ML 2 ML AMP ONE (09:30)
[2023-10-18] MEDS ORDERED: HEPARIN SODIUM 1,000 UN/ML (10ML VL) ONE (09:31)
[2023-10-18] MEDS: MIDAZOLAM 2 MG/2 ML VIAL IVP ONE ×2 (09:46→09:50)
[2023-10-18] MEDS: fentaNYL (PF) 50 MCG/1 ML VIAL IVP ONE (09:50)
--- NOTE | 2023-10-18 10:01 | P.PCN ---
Date of Procedure: 10/18/23 Operative Findings: TRANSESOPHAGEAL ECHOCARDIOGRAM DEICER REPAIRER: NAOMI OLIVERA MD, RPVI INDICATION: Aortic insufficiency SEDATION: Conscious sedation COMPLICATION: None LEVEL OF SEDATION 12 minutes PROCEDURE DESCRIPTION: After obtaining an informed consent, the patient was brought to transesophageal echocardiogram room. Pulse oximetry and heart monitors were attached to the patient. The patient throat was sprayed using lidocaine. The patient was turned into left lateral position. After that a bite guard was placed. After an appropriate conscious sedation was initiated, the transesophageal echocardiogram was advanced through a bite guard into the mid esophagus. A 2-D echocardiogram images, color Doppler images, continuous wave images, pulse-wave images, of various cardiac structure were performed. After that the transesophageal echocardiogram probe was advanced into the stomach and fixed to obtain transgastric view was. The probe was brought into the mid esophagus. Inter-atrial septum was interrogated using 2D images, color Doppler images, and then contrast study. After that transesophageal echocardiogram was withdrawn out and upon withdrawing the descending thoracic aorta all the way up to the arch was evaluated. CONCLUSION: 1. Normal biventricular dimensions and systolic function 2. Trileaflet aortic valve with moderate aortic insufficiency 3. Mildly thickened mitral valve leaflets with moderate MR 4. Normal tricuspid valve and pulmonary valve 5. Hyperdynamic interatrial septum with no shunt 6. Normal left atrial appendage
[2023-10-18] MEDS: LIDOCAINE 1% INJ 10MG/ML (20 ML MDV) SQ ONE (10:03)
[2023-10-18] MEDS: VERAPAMIL SYRINGE (5 MG/10 ML) INTRAARTER ONE (10:08)
[2023-10-18] MEDS: HEPARIN SODIUM 1,000 UN/ML (10ML VL) IVP ONE (10:08)
[2023-10-18] MEDS ORDERED: ONDANSETRON 4 MG/2 ML VIAL ONE (10:15)
[2023-10-18] MEDS: ONDANSETRON 4 MG/2 ML VIAL IVP ONE (10:18)
[2023-10-18] MEDS: IOPAMIDOL-370 100ML BTL INJ ONE ×2 (10:35→10:37)
[2023-10-18] MEDS ORDERED: RX INFO: IV CONTRAST WAS GIVEN 1 EACH MISC MISCELLANE PRN (10:39)
--- NOTE | 2023-10-18 10:44 | P.PCN ---
Date of Procedure: 10/18/23 Operative Findings: CARDIAC CATHETERIZATION PERFORMING PHYSICIAN: Wade Clark MD, RPVI PROCEDURE PERFORMED: 1. Selective right and left coronary angiogram 2. Left heart catheterization 3. An aortic root angiogram 4. IFR of the left anterior descending artery 5. Ultrasound-guided access of the right radial artery INDICATION: Valvular heart disease COMPLICATION: None APPROACH: Right radial artery LEVEL OF SEDATION: Moderate with a sedation length of 32 minutes PROCEDURE DESCRIPTION: After obtaining an informed consent, the patient was brought to cardiac [facility]. Local anesthesia was performed using lidocaine subcutaneously. The right radial artery was cannulated using Seldinger technique, the guidewire passed easily, following that we advanced a 5-Luxembourger sheath dilator assembly, the wire and dilator were removed and sheath was flushed. Following that, 2 mg of verapamil along with 5000 unit heparin were given. Selective right and left coronary angiogram using a 6-Luxembourger JR4 and JL 3.5 catheters. Following that we did left heart catheterization using 6-Luxembourger pigtail cat heter. Subsequently an aortic root angiogram was performed using a pigtail catheter and poor injection. After that I did IFR of the LAD. After zeroing the Doppler wire and equalizing between the Doppler wire and guiding catheter which was JL 3.5 short tip guiding catheter the LAD was wired. The IFR came in to be at 0.94 The procedure was completed there was no complication. SELECTIVE CORONARY ANGIOGRAM: The right coronary artery: Large-caliber vessel and a dominant vessel with mild disease only Left main: Not exist The left circumflex: Large-caliber vessel nondominant vessel. The left circumflex has mild to moderate disease in the proximal portion The left anterior descending artery: The ostial LAD has intermediate lesion documented to be nonflow limiting by Doppler wire with IFR of 0.94. The mid LAD has mild disease only HEMODYNAMICS: The LVEDP was 5 mmHg with no significant gradient across aortic valve Aortic root angiogram: Was performed in the ZAMBIAN projection and using a power injection. There was 2+ aortic insufficiency CONCLUSION: 1. Intermediate disease involving the ostial LAD documented to be 90 flow- limiting by Doppler wire 2. 2+ aortic insufficiency 3. Early filling of the left ventricle and coronary sinus upon injecting the left coronary system POSTPROCEDURE MANAGEMENT: Obtain a CTA as an outpatient
[2023-10-18] MEDS ORDERED: SODIUM CHLORIDE 0.9% 1,000 ML IV SCH (10:45)
[2023-10-18 12:42] VITALS: PULSE 69
[2023-10-18 13:24] VITALS: BP 154/71
== END 2023-10-18 14:17 | disposition home or self-care (01) ==
LOC: CATHCVL 07:10
PROVIDERS: ATTEND Internal Medicine Interventional Cardiology
DX: I08.0 Rheumatic disorders of both mitral and aortic valves (principal); I25.10 Atherosclerotic heart disease of native coronary artery without angina pectoris; I10 Essential (primary) hypertension; E78.5 Hyperlipidemia, unspecified; I73.9 Peripheral vascular disease, unspecified; I65.23 Occlusion and stenosis of bilateral carotid arteries; Z86.73 Personal history of transient ischemic attack (TIA), and cerebral infarction without residual deficits; Z79.02 Long term (current) use of antithrombotics/antiplatelets; Z79.82 Long term (current) use of aspirin; Z79.899 Other long term (current) drug therapy; Z87.891 Personal history of nicotine dependence
CPT/HCPCS: 93312; 93320; 93325; 99152; J2250; J2405; J2001; J1644; Q9967; J3010; 76937; 93458; 93567; 93799